=== PATIENT | male | born 1975 | race Hispanic/Latino ===

== ENCOUNTER 2017-01-24 14:48 | Inpatient (IN) | payer BC ==
[2017-01-24] MEDS ORDERED: Iohexol 240 (50 ml) PO ONE (15:31)
[2017-01-24] MEDS ORDERED: Iohexol 240 (50 ml) ONE (15:43)
--- NOTE | 2017-01-24 15:45 | ED PDOC ---
HPI: Abdomen Time Seen by Provider: 01/24/17 15:00 Chief Complaint (Nursing): Abdominal Pain Chief Complaint (Provider): Abdominal Pain History Per: Patient History/Exam Limitations: no limitations Onset/Duration Of Symptoms: Days (x 2) Current Symptoms Are (Timing): Still Present Location Of Pain/Discomfort: RLQ Associated Symptoms: Vomiting, Diarrhea, Constipation Additional Complaint(s): Wilberto is a 41 y/o male who was sent to ED from PMD for complaints of lower abdominal pain associated with vomiting and constipation, onset at 10PM last night. Patients last formed bowel movement was 3-4 days ago, and he states having diarrhea just now. Denies fever, hematuria, and urinary symptoms. PMD: [facility] provider Past Medical History Reviewed: Historical Data, Nursing Documentation, Vital Signs Vital Signs: Last Vital Signs Temp 99.9 F H 01/24/17 22:05 Pulse 110 H 01/24/17 22:05 Resp 20 01/24/17 22:05 BP 114/72 01/24/17 22:05 Pulse Ox 100 01/25/17 00:10 - Medical History PMH: No Chronic Diseases - Surgical History Surgical History: No Surg Hx - Family History Family History: States: Unknown Family Hx - Social History Current smoker - smoking cessation education provided: No Alcohol: None Drugs: Denies - Home Medications Home Medications: Ambulatory Orders Medication Instructions Recorded Naproxen 375 mg PO Q8 PRN #21 tab 04/21/15 - Allergies Allergies/Adverse Reactions: Allergies Allergy/AdvReac Type Severity Reaction Status Date / Time No Known Allergies Allergy Verified 01/24/17 14:55 Review of Systems ROS Statement: Except As Marked, All Systems Reviewed And Found Negative Constitutional: Negative for: Fever, Chills Gastrointestinal: Positive for: Vomiting, Abdominal Pain (right lower quadrant) , Diarrhea, Constipation Genitourinary Male: Negative for: Dysuria, Frequency, Incontinence, Hematuria Physical Exam - Reviewed Nursing Documentation Reviewed: Yes Vital Signs Reviewed: Yes - Physical Exam Appears: Positive for: Non-toxic, No Acute Distress Head Exam: Positive for: ATRAUMATIC, NORMAL INSPECTION, NORMOCEPHALIC Skin: Positive for: Normal Color, Warm, Dry Eye Exam: Positive for: EOMI, Normal appearance, PERRL Neck: Positive for: Normal, Painless ROM, Supple Cardiovascular/Chest: Positive for: Regular Rate, Rhythm. Negative for: Murmur Respiratory: Positive for: Normal Breath Sounds. Negative for: Accessory Muscle Use, Respiratory Distress Gastrointestinal/Abdominal: Positive for: Bowel Sounds, Soft, Tenderness (to the right lower quadrant). Negative for: Distended, Guarding, Rebound Back: Positive for: Normal Inspection. Negative for: Vertebral Tenderness Extremity: Positive for: Normal ROM. Negative for: Pedal Edema, Deformity Neurologic/Psych: Positive for: Alert, Oriented. Negative for: Motor/Sensory Deficits - Laboratory Results Result Diagrams: 01/24/17 16:00 01/24/17 16:00 - ECG O2 Sat by Pulse Oximetry: 100 (RA) Pulse Ox Interpretation: Normal Medical Decision Making Medical Decision Making: Time: 15:31 Initial Impression: RLQ Abdominal Pain rule out appendicitis Initial Plan: --CMP --CBC --Lipase --Urine culture --Urinalysis --Morphine 4 mg IV --Iohexol 50 ml IV --Zofran 4 mg IV --Pending CT Adomen/Pelvis --Admit to ED-Observation for abdominal pain 1531 ABD PELVIS PO and IV Contrast read by: inna Katz MD. Impression: Acute appendicitis. Disproportionate degree of inflammatory changes affecting ascending colon suggests perforation or a m ore acute inflammatory process. 1829 Spoke to Kaleb Anne, covering Dr Sebastian patients who states that for surgery they use DR. broderick Arenas. (Patient is a [facility] patient) 1844 Shirley the surgeon was made aware of patient and will take pt to OR shortly iv zosyn ordered pt aware of results, answered questions pt reexamined, not peritoneal. pt comfortable. Scribe Attestation: Documented by Sparkle Rodriguez, acting as a scribe for Stefani Valentin MD Provider Scribe Attestation: All medical record entries made by the Scribe were at my direction and personally dictated by me. I have reviewed the chart and agree that the record accurately reflects my personal performance of the history, physical exam, medical decision making, and the department course for this patient. I have also personally directed, reviewed, and agree with the discharge instructions and disposition. Disposition - Clinical Impression Clinical Impression: Appendicitis - Patient ED Disposition Is Patient to be Admitted: Yes - Disposition Disposition Time: 16:00 Condition: STABLE
[2017-01-24] MEDS ORDERED: Sodium Chloride 0.9% 1,000 ML IV STA (16:10)
[2017-01-24 16:20] LABS: HEMATOCRIT 42.6 % (35.0-51.0); LYMPH # 0.9 K/uL (1.0-4.3); LYMPH % 7.3 % (20.0-40.0); MEAN CELL VOLUME 83.4 fl (80.0-94.0); MEAN CORPUSCULAR HEMOGLOBIN 27.3 pg (27.0-31.0); MEAN CORPUSCULAR HGB CONC 32.7 g/dL (33.0-37.0); MEAN PLATELET VOLUME 8.3 fl (7.2-11.7); MONO # 0.7 K/uL (0.0-0.8); MONO % 5.6 % (0.0-10.0); NEUT # 10.2 K/uL (1.8-7.0); NEUT % 87.1 % (50.0-75.0); PLATELET COUNT 191 K/uL (130-400); RED CELL DISTRIBUTION WIDTH 13.3 % (11.5-14.5); WHITE BLOOD COUNT 11.7 K/uL (4.8-10.8)
[2017-01-24 16:32] LABS: ALB/GLOB RATIO 1.4 (1.0-2.1); ALKALINE PHOSPHATASE 54 U/L (38-126); ALT/SGPT 66 U/L (21-72); AST/SGOT 37 U/L (17-59); BLOOD UREA NITROGEN 13 mg/dl (9-20); CALCIUM 9.1 mg/dL (8.4-10.2); CARBON DIOXIDE 23 mmol/L (22-30); CHLORIDE 102 mmol/L (98-107); GFR AFRICAN-AMERICAN > 60; GLUCOSE,RANDOM 89 mg/dL (75-110); LIPASE 22 U/L (23-300); POTASSIUM 4.2 MMOL/L (3.6-5.0); SODIUM 137 mmol/l (132-148); TOTAL PROTEIN 7.4 G/DL (6.3-8.2)
[2017-01-24] MEDS ORDERED: Iohexol 300 100 ML IJ ONE (16:58)
[2017-01-24] MEDS ORDERED: Sodium Chloride 0.9% 50 ML IV ONE (16:58)
[2017-01-24 17:04] LABS: URINE BACTERIA RARE (<OCC); URINE BILIRUBIN NEGATIVE (NEGATIVE); URINE BLOOD NEGATIVE (NEGATIVE); URINE COLOR AMBER (YELLOW); URINE GLUCOSE (UA) NEG (Normal); URINE KETONE 80 mg/dL (NEGATIVE); URINE LEUKOCYTE ESTERASE TRACE Leu/uL (Negative); URINE PROTEIN NEGATIVE (NEGATIVE); URINE UROBILINOGEN 0.2-1.0 mg/dL (0.2-1.0)
[2017-01-24 17:06] LABS: RBC URINE 3 /hpf (0-3); WBC URINE 6 /hpf (0-5)
[2017-01-24 18:27] LABS: NEUTROPHIL 80 % (42-75); TOTAL CELLS COUNTED 100
--- NOTE | 2017-01-24 18:27 | CT ---
PROCEDURE: CT Abdomen and Pelvis with contrast HISTORY: abdominal pain right sided COMPARISON: None. TECHNIQUE: Contrast dose: 95 cc Omnipaque 300 Radiation dose: Total exam DLP = 881.91 mGy-cm. This CT exam was performed using one or more of the following dose reduction techniques: Automated exposure control, adjustment of the mA and/or kV according to patient size, and/or use of iterative reconstruction technique. FINDINGS: LOWER THORAX: Unremarkable. LIVER: Hepatic steatosis. No focal masses. No intrahepatic bile duct dilatation or perihepatic ascites. Focal fatty sparing of the liver right hepatic lobe adjacent to the falciform ligament. GALLBLADDER AND BILE DUCTS: Unremarkable. PANCREAS: Unremarkable. No gross lesion or ductal dilatation. SPLEEN: Unremarkable. ADRENALS: Unremarkable. No mass. KIDNEYS AND URETERS: Unremarkable. No hydronephrosis. No solid mass. VASCULATURE: Unremarkable. No aortic aneurysm. BOWEL: Inflammatory changes right lower quadrant primarily affecting cecum but dissecting more superiorly along the anti mesenteric wall of the right hemicolon. This appears to be related to acute appendicitis. There is focal fluid about the appendix tracking along the pericolic gutter. APPENDIX: Edematous appendix with contrast-enhanced characteristics indicative of acute appendicitis. Focal fluid adjacent to the appendix likely represents the sequela of ruptured appendix. PERITONEUM: Unremarkable. No free fluid. No free air. LYMPH NODES: Unremarkable. No enlarged lymph nodes. BLADDER: Unremarkable. REPRODUCTIVE: Unremarkable. BONES: No acute fracture. OTHER FINDINGS: None. IMPRESSION: Acute appendicitis. Disproportionate degree of inflammatory changes affecting the ascending colon suggests perforation or a more complicated acute inflammatory process.
[2017-01-24] MEDS ORDERED: Piperacillin/Tazobact 4.5 GM in Sodium Chloride 0.9% 100 ML IVPB STA (18:33)
[2017-01-24] MEDS ORDERED: Lidocaine 1% Inj (20ml) ONE (19:15)
[2017-01-24] MEDS ORDERED: Bupivacaine 0.5% Inj(30mL) ONE (19:15)
[2017-01-24 19:19] LABS: PARTIAL THROMBOPLASTIN TIME 30.3 Seconds (25.6-37.1)
[2017-01-24] MEDS ORDERED: Propofol 10 mg/ml Inj (20 ML) ONE (19:40)
[2017-01-24] MEDS ORDERED: Neostigmine Methylsulfate 2 MG/2 ML ML IV ONE (19:41)
[2017-01-24] MEDS ORDERED: Succinylcholine 200 mg/10 ml Inj IV ONE (19:41)
[2017-01-24] MEDS ORDERED: Lidocaine Hydrochloride 5 ML INJ ONE (19:41)
[2017-01-24] MEDS ORDERED: Midazolam 2 MG/2 ML VIAL ONE (19:41)
[2017-01-24] MEDS ORDERED: Lidocaine 4% (Laryng-O-Jet) Kit MM ONE (19:41)
[2017-01-24] MEDS ORDERED: Lactated Ringer's 1,000 ML IV ONE ×2 (19:48→21:33)
[2017-01-24] MEDS ORDERED: Rocuronium 10 mg/ml (5 ml) ONE (19:54)
--- NOTE | 2017-01-24 20:40 | PCM.SURG1 ---
Surgeon's Initial Post Op Note - Surgeon's Notes Surgeon: Yaquelin Cement Mixer Driver: none Type of Anesthesia: General Endo Anesthesia Administered By: Eleni Pre-Operative Diagnosis: acute appendicitis Operative Findings: perforated appendix Post-Operative Diagnosis: perforated ap with peritonitis Operation Performed: lap appendectomy Specimen/Specimens Removed: appendix Estimated Blood Loss: EBL {In ML}: 10 Blood Products Given: N/A Drains Used: Lennox Post-Op Condition: Good Date of Surgery/Procedure: 01/24/17 Time of Surgery/Procedure: 20:00
[2017-01-24] MEDS ORDERED: HYDROmorphone 0.5 mg/0.5 ml ISec IVP PRN (20:46)
[2017-01-24] MEDS ORDERED: Lactated Ringer's 1,000 ML IV SCH (20:46)
[2017-01-24] MEDS ORDERED: HYDROmorphone 0.5 mg/0.5 ml ISec IVP ONE (21:05)
[2017-01-24] MEDS ORDERED: Piperacillin/Tazobact 3.375 GM in Sodium Chloride 0.9% 100 ML IVPB SCH (22:00)
[2017-01-25] MEDS: Piperacillin/Tazobact 3.375 GM in Sodium Chloride 0.9% 100 ML IVPB SCH ×4 (00:45→18:26)
[2017-01-25] MEDS ORDERED: Sodium Chloride 0.9% 1,000 ML IV SCH (02:00)
[2017-01-25] MEDS: Dextrose 5%/0.45% NS 1,000 ML IV SCH ×3 (06:14→20:45)
--- NOTE | 2017-01-25 07:29 | CP.PCM.CON ---
History of Present Illness - History of Present Illness History of Present Illness: Surgery 41 M w no sig PMH came with RLQ abd pain. Pain was sudden onset started 2 days ago. Pt also reports nausea , vomiting and diarrhea. Denies F/sick contact/ hematuria/hematochezia/CP/SOB/hematemesis/recent travel. CT shows acute attendicitis. Surgery was consulted to evalute for acute appendicitis. Pt underwent laparoscopic appendectomy. Drain was placed. Today pain is contollred. c/o nausea from pain med. Tolerating CLD. + void, + amb. Denies fevers. Review of Systems - Review of Systems Review of Systems: See HPI Past Patient History - Past Social History Alcohol: None Drugs: Denies - PSYCHIATRIC Hx Substance Use: No - SURGICAL HISTORY Hx Surgeries: No - ANESTHESIA Hx Anesthesia: No Meds Allergies/Adverse Reactions: Allergies Allergy/AdvReac Type Severity Reaction Status Date / Time No Known Allergies Allergy Verified 01/24/17 14:55 - Medications Medications: Current Medications Acetaminophen (Tylenol 325mg Tab) 650 mg PO Q4 PRN PRN Reason: Fever >100.4 F Last Admin: 01/24/17 21:25 Dose: 650 mg Famotidine (Pepcid) 20 mg IVP Q12 [facility] Last Admin: 01/24/17 22:46 Dose: 20 mg Hydromorphone HCl (Dilaudid) 1 mg IVP Q4H PRN PRN Reason: Pain, severe (8-10) Last Admin: 01/25/17 06:18 Dose: 1 mg Dextrose/Sodium Chloride (Dextrose 5%/0.45% Ns 1000 Ml) 1,000 mls @ 125 mls/hr IV .Q8H [facility] Last Admin: 01/25/17 06:14 Dose: 125 mls/hr Lactated Ringer's (Lactated Ringer's) 1,000 mls @ 100 mls/hr IV .Q10H [facility] Piperacillin Sod/Tazobactam (Sod 3.375 gm/ Sodium Chloride) 100 mls @ 100 mls/ hr IVPB 0100,0700,1300,1900 [facility] Last Admin: 01/25/17 06:10 Dose: 100 mls/hr Morphine Sulfate (Morphine) 4 mg IVP Q4 PRN PRN Reason: abd pain Last Admin: 01/24/17 22:42 Dose: 4 mg Ondansetron HCl (Zofran Inj) 4 mg IVP Q6 PRN PRN Reason: Nausea/Vomiting Last Admin: 01/25/17 06:42 Dose: 4 mg Oxycodone/Acetaminophen (Percocet 5/325 Mg Tab) 1 tab PO Q4H PRN PRN Reason: Pain, moderate (4-7) Stop: 01/27/17 20:41 Pneumococcal Polyvalent Vaccine (Pneumovax 23 Vaccine) 0.5 ml IM .ONCE ONE Stop: 01/25/17 10:01 Physical Exam - Constitutional Appears: No Acute Distress - Head Exam Head Exam: ATRAUMATIC, NORMAL INSPECTION, NORMOCEPHALIC - Eye Exam Eye Exam: EOMI, Normal appearance, PERRL Pupil Exam: NORMAL ACCOMODATION, PERRL - ENT Exam ENT Exam: Mucous Membranes Moist, Normal Exam - Neck Exam Neck exam: Positive for: Normal Inspection - Respiratory Exam Respiratory Exam: Clear to Auscultation Bilateral, NORMAL BREATHING PATTERN - Cardiovascular Exam Cardiovascular Exam: REGULAR RHYTHM - GI/Abdominal Exam GI & Abdominal Exam: Normal Bowel Sounds, Soft, Tenderness. absent: Distended, Firm, Guarding, Hernia, Mass, Rigid Additional comments: RLQ TTP. Drain in place: 200cc SS. Dressings have dry stains. - Exam Exam: NORMAL INSPECTION - Extremities Exam Extremities exam: Positive for: full ROM, normal inspection. Negative for: tenderness - Back Exam Back exam: NORMAL INSPECTION - Neurological Exam Neurological exam: Alert, CN II-XII Intact, Normal Gait, Oriented x3, Reflexes Normal - Psychiatric Exam Psychiatric exam: Normal Affect, Normal Mood - Skin Skin Exam: Dry, Intact, Normal Color, Warm Results - Vital Signs Recent Vital Signs: Last Vital Signs Temp 98.3 F 01/25/17 05:00 Pulse 106 H 01/25/17 05:00 Resp 21 01/25/17 05:00 BP 107/68 01/25/17 05:00 Pulse Ox 96 01/25/17 05:00 - Labs Result Diagrams: 01/24/17 16:00 01/24/17 16:00 Labs: Laboratory Results - last 24 hr 01/24/17 19:00 PT 12.3 INR 1.2 APTT 30.3 Assessment & Plan - Assessment and Plan (Free Text) Assessment: POD 1 s/p laparoscopic appendectomy with drain Drain 200cc SS output -Monitor labs -ABX -IVF -Advance diet as tolerated -Encourage ambulation Will YESENIA attending
[2017-01-25 08:46] LABS: BASO % 0.2 % (0.0-2.0); HEMATOCRIT 31.3 % (35.0-51.0); LYMPH # 1.2 K/uL (1.0-4.3); MEAN CELL VOLUME 84.3 fl (80.0-94.0); MEAN CORPUSCULAR HEMOGLOBIN 27.5 pg (27.0-31.0); MEAN CORPUSCULAR HGB CONC 32.6 g/dL (33.0-37.0); MEAN PLATELET VOLUME 8.3 fl (7.2-11.7); MONO # 0.8 K/uL (0.0-0.8); MONO % 6.6 % (0.0-10.0); NEUT # 9.5 K/uL (1.8-7.0); NEUT % 83.2 % (50.0-75.0); RED CELL DISTRIBUTION WIDTH 13.5 % (11.5-14.5); WHITE BLOOD COUNT 11.5 K/uL (4.8-10.8)
[2017-01-25 09:04] LABS: ALKALINE PHOSPHATASE 41 U/L (38-126); ALT/SGPT 53 U/L (21-72); AST/SGOT 55 U/L (17-59); BILIRUBIN,TOTAL 2.1 mg/dl (0.2-1.3); BLOOD UREA NITROGEN 12 mg/dl (9-20); CALCIUM 7.7 mg/dL (8.4-10.2); CARBON DIOXIDE 21 mmol/L (22-30); CHLORIDE 105 mmol/L (98-107); GFR AFRICAN-AMERICAN > 60; GLUCOSE,RANDOM 118 mg/dL (75-110); SODIUM 135 mmol/l (132-148); TOTAL PROTEIN 5.7 G/DL (6.3-8.2)
[2017-01-25 09:11] LABS: ALB/GLOB RATIO 1.3 (1.0-2.1)
--- NOTE | 2017-01-25 09:36 | CP.PCM.HP ---
History of Present Illness - History of Present Illness History of Present Illness: pt admitted for appendicitis w/ perforation. at present comfortable is s/p lap ap w/ terra drain in place. bw noted. no f/c, n/v/d. samuel liquid diet. w/ abd distention/bloating. drain w/ sanguinous d/c Present on Admission - Present on Admission Any Indicators Present on Admission: No Review of Systems - Gastrointestinal Gastrointestinal: As Per HPI, Abdominal Pain Past Patient History - Past Social History Alcohol: None Drugs: Denies - PSYCHIATRIC Hx Substance Use: No - SURGICAL HISTORY Hx Surgeries: No - ANESTHESIA Hx Anesthesia: No Meds Allergies/Adverse Reactions: Allergies Allergy/AdvReac Type Severity Reaction Status Date / Time No Known Allergies Allergy Verified 01/24/17 14:55 Physical Exam - Constitutional Appears: Well, Non-toxic, No Acute Distress - Head Exam Head Exam: ATRAUMATIC, NORMAL INSPECTION, NORMOCEPHALIC - Eye Exam Eye Exam: EOMI, Normal appearance, PERRL Pupil Exam: NORMAL ACCOMODATION, PERRL - ENT Exam ENT Exam: Mucous Membranes Moist, Normal Exam - Neck Exam Neck exam: Positive for: Normal Inspection - Respiratory Exam Respiratory Exam: Clear to Auscultation Bilateral, NORMAL BREATHING PATTERN - Cardiovascular Exam Cardiovascular Exam: REGULAR RHYTHM, RRR, +S1, +S2 - GI/Abdominal Exam GI & Abdominal Exam: Distended, Normal Bowel Sounds, Soft, Tenderness Additional comments: drain noted - Extremities Exam Extremities exam: Positive for: full ROM, normal capillary refill, normal inspection, pedal pulses present - Back Exam Back exam: NORMAL INSPECTION - Neurological Exam Neurological exam: Alert, CN II-XII Intact, Normal Gait, Oriented x3, Reflexes Normal - Psychiatric Exam Psychiatric exam: Normal Affect, Normal Mood - Skin Skin Exam: Dry, Intact, Normal Color, Warm Results - Vital Signs Recent Vital Signs: Last Vital Signs Temp 98.2 F 01/25/17 08:15 Pulse 96 H 01/25/17 08:15 Resp 20 01/25/17 08:15 BP 108/69 01/25/17 08:15 Pulse Ox 95 01/25/17 08:15 - Labs Result Diagrams: 01/25/17 07:45 01/25/17 07:45 Labs: Laboratory Results - last 24 hr 01/24/17 01/25/17 01/25/17 19:00 07:45 07:45 WBC 11.5 H RBC 3.72 L Hgb 10.2 L D Hct 31.3 L MCV 84.3 MCH 27.5 MCHC 32.6 L RDW 13.5 Plt Count 174 MPV 8.3 Neut % (Auto) 83.2 H Lymph % (Auto) 10.0 L Gilmer % (Auto) 6.6 Eos % (Auto) 0.0 Baso % (Auto) 0.2 Neut # 9.5 H Lymph # 1.2 Gilmer # 0.8 Eos # 0.0 Baso # 0.0 PT 12.3 INR 1.2 APTT 30.3 Sodium 135 Potassium 4.0 Chloride 105 Carbon Dioxide 21 L Anion Gap 13 BUN 12 Creatinine 1.1 Est GFR ( Amer) > 60 Est GFR (Non-Af Amer) > 60 Random Glucose 118 H Calcium 7.7 L Total Bilirubin 2.1 H AST 55 ALT 53 Alkaline Phosphatase 41 Total Protein 5.7 L Albumin 3.2 L D Globulin 2.5 Albumin/Globulin Ratio 1.3 Assessment & Plan (1) DVT prophylaxis Assessment and Plan: scd and aehose ambulation Status: Acute (2) Appendicitis Assessment and Plan: pain control surgery po as samuel surgery, monitor drain zosyn ivf oob, insentive spirometer Status: Acute Decision To Admit - Pt Status Changed To: Hospital Disposition Of: Inpatient - Admit Certification Admit to Inpatient:: After my assessment, the patient will require hospitalization for at least two midnights. This is because of the severity of symptoms shown, intensity of services needed, and/or the medical risk in this patient being treated as an outpatient. - . Bed Request Type: Med/Surg Admitting Physician: Leti Alvarado
[2017-01-25] MEDS ORDERED: Pneumococcal 23-Valent Vaccine IM ONE (10:00)
[2017-01-25] MEDS: Oxycodone/Acetaminophen 5/325 mg Tab PO PRN ×2 (10:16→17:33)
--- NOTE | 2017-01-25 10:50 | OP ---
DATE: 01/24/2017 PREOPERATIVE DIAGNOSIS: Acute appendicitis. POSTOPERATIVE DIAGNOSIS: Ruptured appendix with localized abscess. PROCEDURE: Laparoscopic appendectomy and drainage of the right gutter. SURGEON: Dickson Arenas MD HAND SPLITTER: None. TYPE OF ANESTHESIA: General. ANESTHESIA ADMINISTERED BY: Tayo Knowles MD OPERATIVE FINDING: Perforated appendix. DESCRIPTION OF PROCEDURE: After obtaining informed consent, the patient was taken to the operating room. After a time-out was obtained, an induction of general endotracheal anesthesia was obtained. The abdomen was prepped and draped in the usual manner. A Veress needle was inserted in the periumbilical region, making sure that it was in the intra-abdominal cavity and adequate pneumoperitoneum was obtained. A 5-mm bladeless trocar was inserted in the periumbilical region under Visiport and under direct visualization, a 5 mm in the suprapubic region and a 12 mm in the left lower quadrant. There was a significant amount of inflammatory reaction in the right lower quadrant. The terminal ilium was retrocecal. This was followed and the cecum was visualized. The teniae was followed and it showed that the appendix was in a lateral aspect anteriorly as well, perforated and embedded in the cecal wall. The base of the appendix was visualized, this was carefully dissected. A window was made and using an Endo EDDA with an intestinal load, the base was divided. Careful dissection at the mesoappendix was done, but this is where the appendix was perforated. So upon stapling the mesoappendix, this fell apart, but we were able to place an Endo EDDA vascular load to divide the mesoappendix. Again, the appendix was perforated and was divided in 2 upon the retraction. At this point, both the proximal and distal aspects of the appendix were placed in an Endo bag. The area was copiously irrigated and suctioned. Because of the severe inflammation and infection, I elected to place a Lennox drain in the right lower quadrant by the area of the appendix. The area was inspected for meticulous hemostasis. The Lennox was brought out through the suprapubic incision. At this point, all trocars were removed after the appendix had been removed. Pneumoperitoneum was aspirated. The skin was closed with 5-0 Monocryl. The drain was attached to the skin using 2-0 silk. The patient tolerated the procedure very well and was transferred to recovery room in stable condition. Dickson Arenas MD
--- NOTE | 2017-01-25 14:00 | CP.PCM.PN ---
Subjective - Date & Time of Evaluation Date of Evaluation: 01/25/17 Time of Evaluation: 13:59 - Subjective Subjective: complains of pain, bloating, no nausea or vomiting Objective - Vital Signs/Intake and Output Vital Signs (last 24 hours): Temp Pulse Resp BP Pulse Ox 98.8 F 94 H 18 117/65 96 01/25/17 12:48 01/25/17 12:48 01/25/17 12:48 01/25/17 12:48 01/25/17 12:48 Intake and Output: 01/25/17 01/25/17 06:59 18:59 Intake Total 850 Output Total 10 Balance 840 - Medications Medications: Current Medications Acetaminophen (Tylenol 325mg Tab) 650 mg PO Q4 PRN PRN Reason: Fever >100.4 F Last Admin: 01/24/17 21:25 Dose: 650 mg Famotidine (Pepcid) 20 mg IVP Q12 [facility] Last Admin: 01/25/17 09:03 Dose: 20 mg Hydromorphone HCl (Dilaudid) 1 mg IVP Q4H PRN PRN Reason: Pain, severe (8-10) Last Admin: 01/25/17 06:18 Dose: 1 mg Dextrose/Sodium Chloride (Dextrose 5%/0.45% Ns 1000 Ml) 1,000 mls @ 125 mls/hr IV .Q8H [facility] Last Admin: 01/25/17 06:14 Dose: 125 mls/hr Lactated Ringer's (Lactated Ringer's) 1,000 mls @ 100 mls/hr IV .Q10H [facility] Piperacillin Sod/Tazobactam (Sod 3.375 gm/ Sodium Chloride) 100 mls @ 100 mls/ hr IVPB 0100,0700,1300,1900 [facility] Last Admin: 01/25/17 12:39 Dose: 100 mls/hr Morphine Sulfate (Morphine) 4 mg IVP Q4 PRN PRN Reason: abd pain Last Admin: 01/24/17 22:42 Dose: 4 mg Ondansetron HCl (Zofran Inj) 4 mg IVP Q6 PRN PRN Reason: Nausea/Vomiting Last Admin: 01/25/17 06:42 Dose: 4 mg Oxycodone/Acetaminophen (Percocet 5/325 Mg Tab) 1 tab PO Q4H PRN PRN Reason: Pain, moderate (4-7) Stop: 01/27/17 20:41 Last Admin: 01/25/17 10:16 Dose: 1 tab - Labs Labs: 01/25/17 07:45 01/25/17 07:45 PT 12.3 Seconds (9.8-13.1) 01/24/17 19:00 INR 1.2 (0.9-1.2) 01/24/17 19:00 APTT 30.3 Seconds (25.6-37.1) 01/24/17 19:00 - Constitutional Appears: Non-toxic - Head Exam Head Exam: ATRAUMATIC - Eye Exam Eye Exam: Normal appearance - ENT Exam ENT Exam: Mucous Membranes Dry - Neck Exam Neck Exam: Full ROM - Respiratory Exam Respiratory Exam: Clear to Ausculation Bilateral, NORMAL BREATHING PATTERN - Cardiovascular Exam Cardiovascular Exam: REGULAR RHYTHM - GI/Abdominal Exam GI & Abdominal Exam: Distended, Soft, Normal Bowel Sounds Assessment and Plan - Assessment and Plan (Free Text) Assessment: POD #1, cont abx, incentive spirometer oob to ambulate
[2017-01-25 16:55] LABS: HEMATOCRIT 28.3 % (35.0-51.0); MEAN CELL VOLUME 83.4 fl (80.0-94.0); MEAN CORPUSCULAR HEMOGLOBIN 27.5 pg (27.0-31.0); RED CELL DISTRIBUTION WIDTH 13.3 % (11.5-14.5); WHITE BLOOD COUNT 9.1 K/uL (4.8-10.8)
[2017-01-25] MEDS ORDERED: Lactated Ringer's 1,000 ML IV SCH (19:00)
[2017-01-25 21:57] LABS: HEMATOCRIT 26.3 % (35.0-51.0); MEAN CELL VOLUME 82.9 fl (80.0-94.0); MEAN CORPUSCULAR HEMOGLOBIN 27.6 pg (27.0-31.0); MEAN CORPUSCULAR HGB CONC 33.3 g/dL (33.0-37.0); RED CELL DISTRIBUTION WIDTH 13.2 % (11.5-14.5); WHITE BLOOD COUNT 9.1 K/uL (4.8-10.8)
[2017-01-25] MEDS: Lactated Ringer's 1,000 ML IV SCH (22:30)
[2017-01-25] MEDS ORDERED: DiphenhydrAMINE 50 mg/ml Inj IVP ONE (23:06)
[2017-01-26] MEDS: Piperacillin/Tazobact 3.375 GM in Sodium Chloride 0.9% 100 ML IVPB SCH ×4 (00:57→18:09)
[2017-01-26 01:04] LABS: HEMATOCRIT 25.8 % (35.0-51.0); MEAN CORPUSCULAR HGB CONC 33.7 g/dL (33.0-37.0); RED CELL DISTRIBUTION WIDTH 13.3 % (11.5-14.5); WHITE BLOOD COUNT 8.3 K/uL (4.8-10.8)
[2017-01-26] MEDS: Lactated Ringer's 1,000 ML IV SCH ×3 (04:26→20:09)
[2017-01-26] MEDS: Dextrose 5%/0.45% NS 1,000 ML IV SCH ×2 (05:04→15:48)
[2017-01-26 08:36] LABS: MEAN CELL VOLUME 83.4 fl (80.0-94.0); MEAN CORPUSCULAR HEMOGLOBIN 27.7 pg (27.0-31.0); MEAN CORPUSCULAR HGB CONC 33.2 g/dL (33.0-37.0); RED CELL DISTRIBUTION WIDTH 13.2 % (11.5-14.5); WHITE BLOOD COUNT 8.6 K/uL (4.8-10.8)
--- NOTE | 2017-01-26 08:45 | CP.PCM.PN ---
Subjective - Date & Time of Evaluation Date of Evaluation: 01/26/17 Time of Evaluation: 08:43 - Subjective Subjective: pt still w/ abd distention and having discharge from terra drain. this is slowing down no f/c, n/v/d bw noted, hgb slowly decr. iron panel is pending. liquid diet is ordered and will be advanced as per surgery Objective - Vital Signs/Intake and Output Vital Signs (last 24 hours): Temp Pulse Resp BP Pulse Ox 98.7 F 114 H 20 122/63 96 01/26/17 07:41 01/26/17 07:41 01/26/17 07:41 01/26/17 07:41 01/26/17 07:41 Intake and Output: 01/26/17 01/26/17 06:59 18:59 Intake Total 3000 Output Total 2980 Balance 20 - Medications Medications: Current Medications Acetaminophen (Tylenol 325mg Tab) 650 mg PO Q4 PRN PRN Reason: Fever >100.4 F Last Admin: 01/24/17 21:25 Dose: 650 mg Famotidine (Pepcid) 20 mg IVP Q12 [facility] Last Admin: 01/26/17 08:35 Dose: 20 mg Hydromorphone HCl (Dilaudid) 1 mg IVP Q4H PRN PRN Reason: Pain, severe (8-10) Last Admin: 01/26/17 00:43 Dose: 1 mg Dextrose/Sodium Chloride (Dextrose 5%/0.45% Ns 1000 Ml) 1,000 mls @ 125 mls/hr IV .Q8H [facility] Last Admin: 01/26/17 05:04 Dose: Not Given Piperacillin Sod/Tazobactam (Sod 3.375 gm/ Sodium Chloride) 100 mls @ 100 mls/ hr IVPB 0100,0700,1300,1900 [facility] Last Admin: 01/26/17 07:01 Dose: 100 mls/hr Lactated Ringer's (Lactated Ringer's) 1,000 mls @ 999 mls/hr IV .Q1H1M [facility] Last Admin: 01/25/17 19:16 Dose: 999 mls/hr Lactated Ringer's (Lactated Ringer's) 1,000 mls @ 150 mls/hr IV .Q6H40M [facility] Last Admin: 01/26/17 04:26 Dose: 150 mls/hr Morphine Sulfate (Morphine) 4 mg IVP Q4 PRN PRN Reason: abd pain Last Admin: 01/24/17 22:42 Dose: 4 mg Ondansetron HCl (Zofran Inj) 4 mg IVP Q6 PRN PRN Reason: Nausea/Vomiting Last Admin: 01/26/17 08:36 Dose: 4 mg Oxycodone/Acetaminophen (Percocet 5/325 Mg Tab) 1 tab PO Q4H PRN PRN Reason: Pain, moderate (4-7) Stop: 01/27/17 20:41 Last Admin: 01/25/17 17:33 Dose: 1 tab - Labs Labs: 01/26/17 00:50 01/25/17 07:45 PT 12.3 Seconds (9.8-13.1) 01/24/17 19:00 INR 1.2 (0.9-1.2) 01/24/17 19:00 APTT 30.3 Seconds (25.6-37.1) 01/24/17 19:00 - Constitutional Appears: Well, Non-toxic, No Acute Distress - Head Exam Head Exam: ATRAUMATIC, NORMAL INSPECTION, NORMOCEPHALIC - Eye Exam Eye Exam: EOMI, Normal appearance, PERRL Pupil Exam: NORMAL ACCOMODATION, PERRL - ENT Exam ENT Exam: Mucous Membranes Moist, Normal Exam - Neck Exam Neck Exam: Full ROM, Normal Inspection. absent: Lymphadenopathy - Respiratory Exam Respiratory Exam: Clear to Ausculation Bilateral, NORMAL BREATHING PATTERN - Cardiovascular Exam Cardiovascular Exam: REGULAR RHYTHM, RRR, +S1, +S2. absent: Murmur - GI/Abdominal Exam GI & Abdominal Exam: Distended, Soft, Normal Bowel Sounds. absent: Tenderness - Extremities Exam Extremities Exam: Full ROM, Normal Capillary Refill, Normal Inspection. absent : Joint Swelling, Pedal Edema - Back Exam Back Exam: NORMAL INSPECTION - Neurological Exam Neurological Exam: Alert, Awake, CN II-XII Intact, Normal Gait, Oriented x3 - Psychiatric Exam Psychiatric exam: Normal Affect, Normal Mood - Skin Skin Exam: Dry, Intact, Normal Color, Warm Assessment and Plan (1) DVT prophylaxis Status: Acute (2) Appendicitis Status: Acute - Assessment and Plan (Free Text) Assessment: (1) DVT prophylaxis Assessment and Plan: scd and aehose ambulation Status: Acute (2) Appendicitis Assessment and Plan: pain control surgery po as samuel surgery, monitor drain zosyn ivf oob, insentive spirometer full liquids nad adv to bland Status: Acute
[2017-01-26] MEDS: Oxycodone/Acetaminophen 5/325 mg Tab PO PRN (18:13)
[2017-01-26] MEDS ORDERED: Alum-Mag Hydrox-Simethicone Susp (30 mL) PO ONE (19:35)
--- NOTE | 2017-01-26 19:51 | CP.PCM.PN ---
Subjective - Date & Time of Evaluation Date of Evaluation: 01/26/17 Time of Evaluation: 19:47 - Subjective Subjective: Surgery Pt s&e. C/O abd discomfort. Denies flatus. Tolerating diet. + void. Drain in place. Denies F/C/N/V/D/CP/SOB. Objective - Vital Signs/Intake and Output Vital Signs (last 24 hours): Temp Pulse Resp BP Pulse Ox 99 F 113 H 18 124/82 96 01/26/17 16:22 01/26/17 16:22 01/26/17 16:22 01/26/17 16:22 01/26/17 16:22 Intake and Output: 01/26/17 01/27/17 18:59 06:59 Intake Total 1700 Output Total 570 Balance 1130 - Medications Medications: Current Medications Acetaminophen (Tylenol 325mg Tab) 650 mg PO Q4 PRN PRN Reason: Fever >100.4 F Last Admin: 01/24/17 21:25 Dose: 650 mg Docusate Sodium (Colace) 100 mg PO DAILY [facility] Famotidine (Pepcid) 20 mg IVP Q12 [facility] Last Admin: 01/26/17 08:35 Dose: 20 mg Hydromorphone HCl (Dilaudid) 1 mg IVP Q4H PRN PRN Reason: Pain, severe (8-10) Last Admin: 01/26/17 15:51 Dose: 1 mg Dextrose/Sodium Chloride (Dextrose 5%/0.45% Ns 1000 Ml) 1,000 mls @ 125 mls/hr IV .Q8H [facility] Last Admin: 01/26/17 15:48 Dose: Not Given Piperacillin Sod/Tazobactam (Sod 3.375 gm/ Sodium Chloride) 100 mls @ 100 mls/ hr IVPB 0100,0700,1300,1900 [facility] Last Admin: 01/26/17 18:09 Dose: 100 mls/hr Lactated Ringer's (Lactated Ringer's) 1,000 mls @ 999 mls/hr IV .Q1H1M [facility] Last Admin: 01/25/17 19:16 Dose: 999 mls/hr Lactated Ringer's (Lactated Ringer's) 1,000 mls @ 150 mls/hr IV .Q6H40M [facility] Last Admin: 01/26/17 12:24 Dose: 150 mls/hr Morphine Sulfate (Morphine) 4 mg IVP Q4 PRN PRN Reason: abd pain Last Admin: 01/24/17 22:42 Dose: 4 mg Ondansetron HCl (Zofran Inj) 4 mg IVP Q6 PRN PRN Reason: Nausea/Vomiting Last Admin: 01/26/17 08:36 Dose: 4 mg Oxycodone/Acetaminophen (Percocet 5/325 Mg Tab) 1 tab PO Q4H PRN PRN Reason: Pain, moderate (4-7) Stop: 01/27/17 20:41 Last Admin: 01/26/17 18:13 Dose: 1 tab Simethicone (Mylicon Chew Tab) 80 mg PO TID PRN PRN Reason: Flatulence - Labs Labs: 01/26/17 06:30 01/25/17 07:45 PT 12.3 Seconds (9.8-13.1) 01/24/17 19:00 INR 1.2 (0.9-1.2) 01/24/17 19:00 APTT 30.3 Seconds (25.6-37.1) 01/24/17 19:00 - Constitutional Appears: Non-toxic - Head Exam Head Exam: ATRAUMATIC, NORMAL INSPECTION, NORMOCEPHALIC - Eye Exam Eye Exam: EOMI, Normal appearance, PERRL Pupil Exam: NORMAL ACCOMODATION, PERRL - ENT Exam ENT Exam: Mucous Membranes Moist, Normal Exam - Neck Exam Neck Exam: Full ROM, Normal Inspection. absent: Lymphadenopathy - Respiratory Exam Respiratory Exam: Clear to Ausculation Bilateral, NORMAL BREATHING PATTERN - Cardiovascular Exam Cardiovascular Exam: REGULAR RHYTHM, +S1, +S2. absent: Murmur - GI/Abdominal Exam GI & Abdominal Exam: Distended, Firm, Tenderness, Normal Bowel Sounds. absent: Rigid, Rebound - Exam Exam: NORMAL INSPECTION - Extremities Exam Extremities Exam: Full ROM, Normal Capillary Refill, Normal Inspection. absent : Joint Swelling, Pedal Edema - Back Exam Back Exam: NORMAL INSPECTION - Neurological Exam Neurological Exam: Alert, Awake, CN II-XII Intact, Normal Gait, Oriented x3 - Psychiatric Exam Psychiatric exam: Normal Affect, Normal Mood - Skin Skin Exam: Dry, Intact, Normal Color, Warm Assessment and Plan - Assessment and Plan (Free Text) Assessment: POD 2 s/p lap norberto OMAYRA 500cc ss /24hr Hgb 9 -monitor labs -MOnitor drain output -VS -IVF -ABX -Pain control YESENIA attending
[2017-01-26] MEDS: Simethicone 80 mg Chewtab PO PRN (23:22)
[2017-01-27] MEDS: Piperacillin/Tazobact 3.375 GM in Sodium Chloride 0.9% 100 ML IVPB SCH ×4 (00:03→18:19)
[2017-01-27] MEDS: Lactated Ringer's 1,000 ML IV SCH ×2 (01:00→21:34)
[2017-01-27] MEDS: Oxycodone/Acetaminophen 5/325 mg Tab PO PRN ×3 (04:20→15:46)
[2017-01-27 08:04] LABS: HEMATOCRIT 28.4 % (35.0-51.0); MEAN CELL VOLUME 82.3 fl (80.0-94.0); MEAN CORPUSCULAR HEMOGLOBIN 28.3 pg (27.0-31.0); MEAN CORPUSCULAR HGB CONC 34.4 g/dL (33.0-37.0); RED CELL DISTRIBUTION WIDTH 12.9 % (11.5-14.5); WHITE BLOOD COUNT 9.4 K/uL (4.8-10.8)
[2017-01-27] MEDS ORDERED: Oxycodone/Acetaminophen 5/325 mg Tab PO PRN (08:41)
[2017-01-27 08:43] LABS: IRON < 10 ug/dL (49-181)
[2017-01-27] MEDS: Simethicone 80 mg Chewtab PO PRN ×2 (09:07→16:00)
[2017-01-27] MEDS ORDERED: Simethicone 80 mg Chewtab PO STA (09:21)
--- NOTE | 2017-01-27 09:25 | CP.PCM.PN ---
Subjective - Date & Time of Evaluation Date of Evaluation: 01/27/17 Time of Evaluation: 09:23 - Subjective Subjective: Surgery Pt s&e. Reports passing gas. vomited this AM. Non bloody, non bilious. + void. + amb. Pain controlled. Objective - Vital Signs/Intake and Output Vital Signs (last 24 hours): Temp Pulse Resp BP Pulse Ox 98.4 F 114 H 20 139/92 H 95 01/27/17 07:25 01/27/17 09:00 01/27/17 07:25 01/27/17 07:25 01/27/17 07:25 Intake and Output: 01/27/17 01/27/17 06:59 18:59 Intake Total 2700 Output Total 0 440 Balance 0 2260 - Medications Medications: Current Medications Acetaminophen (Tylenol 325mg Tab) 650 mg PO Q4 PRN PRN Reason: Fever >100.4 F Last Admin: 01/24/17 21:25 Dose: 650 mg Docusate Sodium (Colace) 100 mg PO DAILY [facility] Last Admin: 01/27/17 09:03 Dose: 100 mg Famotidine (Pepcid) 20 mg IVP Q12 [facility] Last Admin: 01/27/17 09:03 Dose: 20 mg Hydromorphone HCl (Dilaudid) 1 mg IVP Q4H PRN PRN Reason: Pain, severe (8-10) Last Admin: 01/26/17 23:15 Dose: 1 mg Piperacillin Sod/Tazobactam (Sod 3.375 gm/ Sodium Chloride) 100 mls @ 100 mls/ hr IVPB 0100,0700,1300,1900 [facility] Last Admin: 01/27/17 06:07 Dose: 100 mls/hr Lactated Ringer's (Lactated Ringer's) 1,000 mls @ 150 mls/hr IV .Q6H40M [facility] Last Admin: 01/27/17 01:00 Dose: Not Given Morphine Sulfate (Morphine) 4 mg IVP Q4 PRN PRN Reason: abd pain Last Admin: 01/24/17 22:42 Dose: 4 mg Ondansetron HCl (Zofran Inj) 4 mg IVP Q6 PRN PRN Reason: Nausea/Vomiting Last Admin: 01/26/17 23:20 Dose: 4 mg Oxycodone/Acetaminophen (Percocet 5/325 Mg Tab) 1 tab PO Q4H PRN PRN Reason: Pain, moderate (4-7) Stop: 01/27/17 20:41 Last Admin: 01/27/17 09:07 Dose: 1 tab Oxycodone/Acetaminophen (Percocet 5/325 Mg Tab) 2 tab PO Q4 PRN PRN Reason: Pain, severe (8-10) Stop: 01/30/17 08:42 Simethicone (Mylicon Chew Tab) 80 mg PO TID PRN PRN Reason: Flatulence Last Admin: 01/27/17 09:07 Dose: 80 mg Simethicone (Mylicon Chew Tab) 80 mg PO STAT [facility] Stop: 01/27/17 09:22 - Labs Labs: 01/27/17 06:00 01/25/17 07:45 PT 12.3 Seconds (9.8-13.1) 01/24/17 19:00 INR 1.2 (0.9-1.2) 01/24/17 19:00 APTT 30.3 Seconds (25.6-37.1) 01/24/17 19:00 - Constitutional Appears: No Acute Distress - Head Exam Head Exam: ATRAUMATIC, NORMAL INSPECTION, NORMOCEPHALIC - Eye Exam Eye Exam: EOMI, Normal appearance, PERRL Pupil Exam: NORMAL ACCOMODATION, PERRL - ENT Exam ENT Exam: Mucous Membranes Moist, Normal Exam - Neck Exam Neck Exam: Full ROM, Normal Inspection. absent: Lymphadenopathy - Respiratory Exam Respiratory Exam: Clear to Ausculation Bilateral, NORMAL BREATHING PATTERN - Cardiovascular Exam Cardiovascular Exam: REGULAR RHYTHM, +S1, +S2. absent: Murmur - GI/Abdominal Exam GI & Abdominal Exam: Distended, Soft, Normal Bowel Sounds. absent: Tenderness Additional comments: Incision intact. OMAYRA in place. 1L /24hrs ss - Extremities Exam Extremities Exam: Full ROM, Normal Capillary Refill, Normal Inspection. absent : Joint Swelling, Pedal Edema - Back Exam Back Exam: NORMAL INSPECTION - Neurological Exam Neurological Exam: Alert, Awake, CN II-XII Intact, Normal Gait, Oriented x3 - Psychiatric Exam Psychiatric exam: Normal Affect, Normal Mood - Skin Skin Exam: Dry, Intact, Normal Color, Warm Assessment and Plan - Assessment and Plan (Free Text) Assessment: POD 3 s/p lap norberto OMAYRA 1000cc ss /24hr Hgb 9.8 -monitor labs -MOnitor drain output -VS -IVF -ABX -Pain control -Nausea control Will YESENIA attending
--- NOTE | 2017-01-27 09:37 | CP.PCM.PN ---
Subjective - Date & Time of Evaluation Date of Evaluation: 01/27/17 Time of Evaluation: 09:37 - Subjective Subjective: pt comfortable in bed, no distress no f/c, n/v/d still w/ abd bloating passed some flatus/stool w/ stool softner, still bloated/distended. am labs noted. hgb coming back up. Objective - Vital Signs/Intake and Output Vital Signs (last 24 hours): Temp Pulse Resp BP Pulse Ox 98.4 F 114 H 20 139/92 H 95 01/27/17 07:25 01/27/17 09:00 01/27/17 07:25 01/27/17 07:25 01/27/17 07:25 Intake and Output: 01/27/17 01/27/17 06:59 18:59 Intake Total 2700 Output Total 0 440 Balance 0 2260 - Medications Medications: Current Medications Acetaminophen (Tylenol 325mg Tab) 650 mg PO Q4 PRN PRN Reason: Fever >100.4 F Last Admin: 01/24/17 21:25 Dose: 650 mg Docusate Sodium (Colace) 100 mg PO DAILY [facility] Last Admin: 01/27/17 09:03 Dose: 100 mg Famotidine (Pepcid) 20 mg IVP Q12 [facility] Last Admin: 01/27/17 09:03 Dose: 20 mg Hydromorphone HCl (Dilaudid) 1 mg IVP Q4H PRN PRN Reason: Pain, severe (8-10) Last Admin: 01/26/17 23:15 Dose: 1 mg Piperacillin Sod/Tazobactam (Sod 3.375 gm/ Sodium Chloride) 100 mls @ 100 mls/ hr IVPB 0100,0700,1300,1900 [facility] Last Admin: 01/27/17 06:07 Dose: 100 mls/hr Lactated Ringer's (Lactated Ringer's) 1,000 mls @ 150 mls/hr IV .Q6H40M [facility] Last Admin: 01/27/17 01:00 Dose: Not Given Morphine Sulfate (Morphine) 4 mg IVP Q4 PRN PRN Reason: abd pain Last Admin: 01/24/17 22:42 Dose: 4 mg Ondansetron HCl (Zofran Inj) 4 mg IVP Q6 PRN PRN Reason: Nausea/Vomiting Last Admin: 01/26/17 23:20 Dose: 4 mg Oxycodone/Acetaminophen (Percocet 5/325 Mg Tab) 1 tab PO Q4H PRN PRN Reason: Pain, moderate (4-7) Stop: 01/27/17 20:41 Last Admin: 01/27/17 09:07 Dose: 1 tab Oxycodone/Acetaminophen (Percocet 5/325 Mg Tab) 2 tab PO Q4 PRN PRN Reason: Pain, severe (8-10) Stop: 01/30/17 08:42 Simethicone (Mylicon Chew Tab) 80 mg PO TID PRN PRN Reason: Flatulence Last Admin: 01/27/17 09:07 Dose: 80 mg Simethicone (Mylicon Chew Tab) 80 mg PO STAT [facility] Stop: 01/27/17 09:22 - Labs Labs: 01/27/17 06:00 01/25/17 07:45 PT 12.3 Seconds (9.8-13.1) 01/24/17 19:00 INR 1.2 (0.9-1.2) 01/24/17 19:00 APTT 30.3 Seconds (25.6-37.1) 01/24/17 19:00 - Constitutional Appears: Well, Non-toxic, No Acute Distress - Head Exam Head Exam: ATRAUMATIC, NORMAL INSPECTION, NORMOCEPHALIC - Eye Exam Eye Exam: EOMI, Normal appearance, PERRL Pupil Exam: NORMAL ACCOMODATION, PERRL - ENT Exam ENT Exam: Mucous Membranes Moist, Normal Exam - Neck Exam Neck Exam: Full ROM, Normal Inspection. absent: Lymphadenopathy - Respiratory Exam Respiratory Exam: Clear to Ausculation Bilateral, NORMAL BREATHING PATTERN - Cardiovascular Exam Cardiovascular Exam: REGULAR RHYTHM, RRR, +S1, +S2. absent: Murmur - GI/Abdominal Exam GI & Abdominal Exam: Distended, Soft, Normal Bowel Sounds - Extremities Exam Extremities Exam: Full ROM, Normal Capillary Refill, Normal Inspection. absent : Joint Swelling, Pedal Edema - Back Exam Back Exam: NORMAL INSPECTION - Neurological Exam Neurological Exam: Alert, Awake, CN II-XII Intact, Normal Gait, Oriented x3 - Psychiatric Exam Psychiatric exam: Normal Affect, Normal Mood - Skin Skin Exam: Dry, Intact, Normal Color, Warm Assessment and Plan (1) DVT prophylaxis Assessment & Plan: scd and ae hose ambulation hold anticoag for now Status: Acute (2) Appendicitis Assessment & Plan: cont anbx, terra drain pain control sugery f/u liquid diet and adv when samuel and less distendned Status: Acute - Assessment and Plan (Free Text) Assessment: acute blood loss anemia-stabilzing and rising, concern w/ po iron as could cause further constipation. will monitor and further assess need. heme consult prn
[2017-01-28] MEDS: Piperacillin/Tazobact 3.375 GM in Sodium Chloride 0.9% 100 ML IVPB SCH ×4 (00:01→18:30)
[2017-01-28] MEDS: Lactated Ringer's 1,000 ML IV SCH ×4 (00:02→17:26)
[2017-01-28 07:27] LABS: HEMATOCRIT 26.3 % (35.0-51.0); MEAN CELL VOLUME 82.5 fl (80.0-94.0); MEAN CORPUSCULAR HEMOGLOBIN 27.4 pg (27.0-31.0); MEAN CORPUSCULAR HGB CONC 33.3 g/dL (33.0-37.0); RED CELL DISTRIBUTION WIDTH 12.9 % (11.5-14.5)
[2017-01-28 07:50] LABS: ALB/GLOB RATIO 1.1 (1.0-2.1); ALKALINE PHOSPHATASE 41 U/L (38-126); ALT/SGPT 58 U/L (21-72); AST/SGOT 47 U/L (17-59); BILIRUBIN,TOTAL 0.8 mg/dl (0.2-1.3); BLOOD UREA NITROGEN 9 mg/dl (9-20); CALCIUM 7.8 mg/dL (8.4-10.2); CARBON DIOXIDE 28 mmol/L (22-30); CHLORIDE 98 mmol/L (98-107); GFR AFRICAN-AMERICAN > 60; GLUCOSE,RANDOM 106 mg/dL (75-110); POTASSIUM 4.1 MMOL/L (3.6-5.0); SODIUM 133 mmol/l (132-148); TOTAL PROTEIN 5.3 G/DL (6.3-8.2)
--- NOTE | 2017-01-28 08:05 | CP.PCM.PN ---
Subjective - Date & Time of Evaluation Date of Evaluation: 01/28/17 Time of Evaluation: 08:04 - Subjective Subjective: pt more comfortable, states abd feels about the same but denies f/c, n/v/d. is pass flatus. still w/ abd distention terra drain still w/ output Objective - Vital Signs/Intake and Output Vital Signs (last 24 hours): Temp Pulse Resp BP Pulse Ox 98.7 F 107 H 20 113/62 95 01/28/17 07:27 01/28/17 07:27 01/28/17 07:27 01/28/17 07:27 01/28/17 07:27 Intake and Output: 01/28/17 01/28/17 06:59 18:59 Output Total 340 Balance -340 - Medications Medications: Current Medications Acetaminophen (Tylenol 325mg Tab) 650 mg PO Q4 PRN PRN Reason: Fever >100.4 F Last Admin: 01/24/17 21:25 Dose: 650 mg Docusate Sodium (Colace) 100 mg PO BID [facility] Last Admin: 01/27/17 21:18 Dose: 100 mg Famotidine (Pepcid) 20 mg IVP Q12 [facility] Last Admin: 01/27/17 21:20 Dose: 20 mg Piperacillin Sod/Tazobactam (Sod 3.375 gm/ Sodium Chloride) 100 mls @ 100 mls/ hr IVPB 0100,0700,1300,1900 [facility] Last Admin: 01/28/17 06:03 Dose: 100 mls/hr Lactated Ringer's (Lactated Ringer's) 1,000 mls @ 150 mls/hr IV .Q6H40M [facility] Last Admin: 01/28/17 03:59 Dose: Not Given Morphine Sulfate (Morphine) 4 mg IVP Q4 PRN PRN Reason: abd pain Last Admin: 01/28/17 00:07 Dose: 4 mg Ondansetron HCl (Zofran Inj) 4 mg IVP Q6 PRN PRN Reason: Nausea/Vomiting Last Admin: 01/27/17 15:55 Dose: 4 mg Oxycodone/Acetaminophen (Percocet 5/325 Mg Tab) 2 tab PO Q4 PRN PRN Reason: Pain, severe (8-10) Stop: 01/30/17 08:42 Simethicone (Mylicon Chew Tab) 80 mg PO TID PRN PRN Reason: Flatulence Last Admin: 01/27/17 16:00 Dose: 80 mg Zolpidem Tartrate (Ambien) 5 mg PO HS PRN PRN Reason: insomia Last Admin: 01/28/17 00:01 Dose: 5 mg - Labs Labs: 01/28/17 06:35 01/28/17 06:35 PT 12.3 Seconds (9.8-13.1) 01/24/17 19:00 INR 1.2 (0.9-1.2) 01/24/17 19:00 APTT 30.3 Seconds (25.6-37.1) 01/24/17 19:00 - Constitutional Appears: Well, Non-toxic, No Acute Distress - Head Exam Head Exam: ATRAUMATIC, NORMAL INSPECTION, NORMOCEPHALIC - Eye Exam Eye Exam: EOMI, Normal appearance, PERRL Pupil Exam: NORMAL ACCOMODATION, PERRL - ENT Exam ENT Exam: Mucous Membranes Moist, Normal Exam - Neck Exam Neck Exam: Full ROM, Normal Inspection. absent: Lymphadenopathy - Respiratory Exam Respiratory Exam: Clear to Ausculation Bilateral, NORMAL BREATHING PATTERN - Cardiovascular Exam Cardiovascular Exam: REGULAR RHYTHM, RRR, +S1, +S2. absent: Murmur - GI/Abdominal Exam GI & Abdominal Exam: Distended, Soft, Hypoactive Bowel Sounds. absent: Tenderness - Extremities Exam Extremities Exam: Full ROM, Normal Capillary Refill, Normal Inspection. absent : Joint Swelling, Pedal Edema - Back Exam Back Exam: NORMAL INSPECTION - Neurological Exam Neurological Exam: Alert, Awake, CN II-XII Intact, Normal Gait, Oriented x3 - Psychiatric Exam Psychiatric exam: Normal Affect, Normal Mood - Skin Skin Exam: Dry, Intact, Normal Color, Warm Assessment and Plan (1) DVT prophylaxis Assessment & Plan: scd and ae hose ambulation Status: Acute (2) Appendicitis Assessment & Plan: cont surgical f/u cont anbx cont drain managmenet, wound care stool softner pain control Status: Acute
[2017-01-28] MEDS: Simethicone 80 mg Chewtab PO PRN (08:27)
--- NOTE | 2017-01-28 10:19 | CP.PCM.PN ---
Subjective - Date & Time of Evaluation Date of Evaluation: 01/28/17 Time of Evaluation: 10:17 - Subjective Subjective: Surgery: Dr. Shafer Pt seen and examined. Resting comfortably in bed. Pain controlled. Tolerating liquid diet. No N/V. No BM. Pt would like to eat more. Pt is ambulating w. out difficulty. Objective - Vital Signs/Intake and Output Vital Signs (last 24 hours): Temp Pulse Resp BP Pulse Ox 98.7 F 107 H 20 113/62 95 01/28/17 07:27 01/28/17 07:27 01/28/17 07:27 01/28/17 07:27 01/28/17 07:27 Intake and Output: 01/28/17 01/28/17 06:59 18:59 Intake Total 100 Output Total 340 55 Balance -340 45 - Medications Medications: Current Medications Acetaminophen (Tylenol 325mg Tab) 650 mg PO Q4 PRN PRN Reason: Fever >100.4 F Last Admin: 01/24/17 21:25 Dose: 650 mg Docusate Sodium (Colace) 100 mg PO BID [facility] Last Admin: 01/28/17 08:25 Dose: 100 mg Famotidine (Pepcid) 20 mg IVP Q12 [facility] Last Admin: 01/28/17 08:25 Dose: 20 mg Piperacillin Sod/Tazobactam (Sod 3.375 gm/ Sodium Chloride) 100 mls @ 100 mls/ hr IVPB 0100,0700,1300,1900 [facility] Last Admin: 01/28/17 06:03 Dose: 100 mls/hr Lactated Ringer's (Lactated Ringer's) 1,000 mls @ 150 mls/hr IV .Q6H40M [facility] Last Admin: 01/28/17 03:59 Dose: Not Given Morphine Sulfate (Morphine) 4 mg IVP Q4 PRN PRN Reason: abd pain Last Admin: 01/28/17 00:07 Dose: 4 mg Ondansetron HCl (Zofran Inj) 4 mg IVP Q6 PRN PRN Reason: Nausea/Vomiting Last Admin: 01/27/17 15:55 Dose: 4 mg Oxycodone/Acetaminophen (Percocet 5/325 Mg Tab) 2 tab PO Q4 PRN PRN Reason: Pain, severe (8-10) Stop: 01/30/17 08:42 Simethicone (Mylicon Chew Tab) 80 mg PO TID PRN PRN Reason: Flatulence Last Admin: 01/28/17 08:27 Dose: 80 mg Zolpidem Tartrate (Ambien) 5 mg PO HS PRN PRN Reason: insomia Last Admin: 01/28/17 00:01 Dose: 5 mg - Labs Labs: 01/28/17 06:35 01/28/17 06:35 PT 12.3 Seconds (9.8-13.1) 01/24/17 19:00 INR 1.2 (0.9-1.2) 01/24/17 19:00 APTT 30.3 Seconds (25.6-37.1) 01/24/17 19:00 - Constitutional Appears: Non-toxic, No Acute Distress - Head Exam Head Exam: ATRAUMATIC, NORMOCEPHALIC - Eye Exam Eye Exam: EOMI - ENT Exam ENT Exam: Mucous Membranes Moist - Neck Exam Neck Exam: Full ROM - Respiratory Exam Respiratory Exam: NORMAL BREATHING PATTERN. absent: Accessory Muscle Use, Respiratory Distress - Cardiovascular Exam Cardiovascular Exam: Tachycardia - GI/Abdominal Exam GI & Abdominal Exam: Soft. absent: Distended, Firm, Guarding, Rigid, Tenderness , Rebound Additional comments: Lennox in place w. sanguinous output - Extremities Exam Extremities Exam: absent: Calf Tenderness, Pedal Edema - Neurological Exam Neurological Exam: Alert, Oriented x3 Assessment and Plan - Assessment and Plan (Free Text) Assessment: 41M w. appendicitis, s/p lap appy POD#4, w. post-op bleeding -Lennox: 340cc/12hr sanguinous -continue to monitor H/H and transfuse if needed -continue to hold anticoagulation -c/w IVF -c/w pain meds -c/w abx -will advance diet to regular -will d/w attending Zemaitis PGY3
[2017-01-29] MEDS: Piperacillin/Tazobact 3.375 GM in Sodium Chloride 0.9% 100 ML IVPB SCH ×4 (00:10→18:05)
--- NOTE | 2017-01-29 07:13 | CP.PCM.PN ---
Subjective - Date & Time of Evaluation Date of Evaluation: 01/29/17 Time of Evaluation: 07:13 - Subjective Subjective: pt doing well, less abd distention/bloating, pass flatus not stool. no f/c, n/v/ d still w/ some constipation. Objective - Vital Signs/Intake and Output Vital Signs (last 24 hours): Temp Pulse Resp BP Pulse Ox 98.7 F 107 H 20 131/78 95 01/29/17 01:17 01/29/17 01:17 01/29/17 01:17 01/29/17 01:17 01/29/17 01:17 Intake and Output: 01/29/17 01/29/17 06:59 18:59 Output Total 440 Balance -440 - Medications Medications: Current Medications Acetaminophen (Tylenol 325mg Tab) 650 mg PO Q4 PRN PRN Reason: Fever >100.4 F Last Admin: 01/24/17 21:25 Dose: 650 mg Acetaminophen (Tylenol 325mg Tab) 650 mg PO Q4 PRN PRN Reason: Pain, Mild (1-3) Last Admin: 01/29/17 04:59 Dose: 650 mg Docusate Sodium (Colace) 100 mg PO BID [facility] Last Admin: 01/28/17 18:29 Dose: 100 mg Famotidine (Pepcid) 20 mg IVP Q12 [facility] Last Admin: 01/28/17 21:53 Dose: 20 mg Piperacillin Sod/Tazobactam (Sod 3.375 gm/ Sodium Chloride) 100 mls @ 100 mls/ hr IVPB 0100,0700,1300,1900 [facility] Last Admin: 01/29/17 06:22 Dose: 100 mls/hr Lactated Ringer's (Lactated Ringer's) 1,000 mls @ 150 mls/hr IV .Q6H40M [facility] Last Admin: 01/28/17 17:26 Dose: Not Given Morphine Sulfate (Morphine) 4 mg IVP Q4 PRN PRN Reason: abd pain Last Admin: 01/28/17 18:30 Dose: 4 mg Ondansetron HCl (Zofran Inj) 4 mg IVP Q6 PRN PRN Reason: Nausea/Vomiting Last Admin: 01/28/17 18:36 Dose: 4 mg Oxycodone/Acetaminophen (Percocet 5/325 Mg Tab) 2 tab PO Q4 PRN PRN Reason: Pain, severe (8-10) Stop: 01/30/17 08:42 Simethicone (Mylicon Chew Tab) 80 mg PO TID PRN PRN Reason: Flatulence Last Admin: 01/28/17 08:27 Dose: 80 mg Zolpidem Tartrate (Ambien) 5 mg PO HS PRN PRN Reason: insomia Last Admin: 01/28/17 21:58 Dose: 5 mg - Labs Labs: 01/28/17 06:35 01/28/17 06:35 PT 12.3 Seconds (9.8-13.1) 01/24/17 19:00 INR 1.2 (0.9-1.2) 01/24/17 19:00 APTT 30.3 Seconds (25.6-37.1) 01/24/17 19:00 - Constitutional Appears: Well, Non-toxic, No Acute Distress - Head Exam Head Exam: ATRAUMATIC, NORMAL INSPECTION, NORMOCEPHALIC - Eye Exam Eye Exam: EOMI, Normal appearance, PERRL Pupil Exam: NORMAL ACCOMODATION, PERRL - ENT Exam ENT Exam: Mucous Membranes Moist, Normal Exam - Neck Exam Neck Exam: Full ROM, Normal Inspection. absent: Lymphadenopathy - Respiratory Exam Respiratory Exam: Clear to Ausculation Bilateral, NORMAL BREATHING PATTERN - Cardiovascular Exam Cardiovascular Exam: REGULAR RHYTHM, RRR, +S1, +S2. absent: Murmur - GI/Abdominal Exam GI & Abdominal Exam: Distended, Soft, Normal Bowel Sounds. absent: Tenderness - Extremities Exam Extremities Exam: Full ROM, Normal Capillary Refill, Normal Inspection. absent : Joint Swelling, Pedal Edema - Back Exam Back Exam: NORMAL INSPECTION - Neurological Exam Neurological Exam: Alert, Awake, CN II-XII Intact, Normal Gait, Oriented x3 - Psychiatric Exam Psychiatric exam: Normal Affect, Normal Mood - Skin Skin Exam: Dry, Intact, Normal Color, Warm Assessment and Plan (1) DVT prophylaxis Assessment & Plan: scd jaja ehose ambulation Status: Acute (2) Appendicitis Assessment & Plan: doing well, still w/ ileus, cona nbx, pain control surgery f/u cont drainuntil dc by surgery adv diet this am stool softner Status: Acute
[2017-01-29 07:32] LABS: ALKALINE PHOSPHATASE 43 U/L (38-126); ALT/SGPT 59 U/L (21-72); AST/SGOT 47 U/L (17-59); BILIRUBIN,TOTAL 0.7 mg/dl (0.2-1.3); BLOOD UREA NITROGEN 7 mg/dl (9-20); CARBON DIOXIDE 27 mmol/L (22-30); CHLORIDE 98 mmol/L (98-107); GFR AFRICAN-AMERICAN > 60; GLUCOSE,RANDOM 99 mg/dL (75-110); POTASSIUM 3.6 MMOL/L (3.6-5.0); SODIUM 133 mmol/l (132-148); TOTAL PROTEIN 5.6 G/DL (6.3-8.2)
[2017-01-29 07:33] LABS: BASO % 0.2 % (0.0-2.0); EOS % 0.6 % (0.0-4.0); HEMATOCRIT 24.5 % (35.0-51.0); LYMPH # 0.8 K/uL (1.0-4.3); LYMPH % 10.3 % (20.0-40.0); MEAN CELL VOLUME 81.7 fl (80.0-94.0); MEAN CORPUSCULAR HGB CONC 34.3 g/dL (33.0-37.0); MEAN PLATELET VOLUME 7.9 fl (7.2-11.7); MONO # 1.1 K/uL (0.0-0.8); MONO % 14.8 % (0.0-10.0); NEUT # 5.4 K/uL (1.8-7.0); NEUT % 74.1 % (50.0-75.0); RED CELL DISTRIBUTION WIDTH 13.1 % (11.5-14.5); WHITE BLOOD COUNT 7.3 K/uL (4.8-10.8)
--- NOTE | 2017-01-29 08:04 | CP.PCM.PN ---
Subjective - Date & Time of Evaluation Date of Evaluation: 01/29/17 Time of Evaluation: 08:01 - Subjective Subjective: Surgery: Dr. Arenas Pt seen and examined. Resting comfortably in bed. Pain controlled. Pt has been ambulating w. out difficulty. Tolerating FLD. No N/V. Passing flatus. No BM. Objective - Vital Signs/Intake and Output Vital Signs (last 24 hours): Temp Pulse Resp BP Pulse Ox 98.7 F 107 H 20 131/78 95 01/29/17 01:17 01/29/17 01:17 01/29/17 01:17 01/29/17 01:17 01/29/17 01:17 Intake and Output: 01/29/17 01/29/17 06:59 18:59 Output Total 440 Balance -440 - Medications Medications: Current Medications Acetaminophen (Tylenol 325mg Tab) 650 mg PO Q4 PRN PRN Reason: Fever >100.4 F Last Admin: 01/24/17 21:25 Dose: 650 mg Acetaminophen (Tylenol 325mg Tab) 650 mg PO Q4 PRN PRN Reason: Pain, Mild (1-3) Last Admin: 01/29/17 04:59 Dose: 650 mg Bisacodyl (Dulcolax) 10 mg OH ONCE ONE Stop: 01/29/17 08:02 Docusate Sodium (Colace) 100 mg PO BID [facility] Last Admin: 01/28/17 18:29 Dose: 100 mg Famotidine (Pepcid) 20 mg IVP Q12 [facility] Last Admin: 01/28/17 21:53 Dose: 20 mg Piperacillin Sod/Tazobactam (Sod 3.375 gm/ Sodium Chloride) 100 mls @ 100 mls/ hr IVPB 0100,0700,1300,1900 [facility] Last Admin: 01/29/17 06:22 Dose: 100 mls/hr Lactated Ringer's (Lactated Ringer's) 1,000 mls @ 150 mls/hr IV .Q6H40M [facility] Last Admin: 01/28/17 17:26 Dose: Not Given Morphine Sulfate (Morphine) 4 mg IVP Q4 PRN PRN Reason: abd pain Last Admin: 01/28/17 18:30 Dose: 4 mg Ondansetron HCl (Zofran Inj) 4 mg IVP Q6 PRN PRN Reason: Nausea/Vomiting Last Admin: 01/28/17 18:36 Dose: 4 mg Oxycodone/Acetaminophen (Percocet 5/325 Mg Tab) 2 tab PO Q4 PRN PRN Reason: Pain, severe (8-10) Stop: 01/30/17 08:42 Simethicone (Mylicon Chew Tab) 80 mg PO TID PRN PRN Reason: Flatulence Last Admin: 01/28/17 08:27 Dose: 80 mg Zolpidem Tartrate (Ambien) 5 mg PO HS PRN PRN Reason: insomia Last Admin: 01/28/17 21:58 Dose: 5 mg - Labs Labs: 01/29/17 06:50 01/29/17 06:50 PT 12.3 Seconds (9.8-13.1) 01/24/17 19:00 INR 1.2 (0.9-1.2) 01/24/17 19:00 APTT 30.3 Seconds (25.6-37.1) 01/24/17 19:00 - Constitutional Appears: Non-toxic, No Acute Distress - Head Exam Head Exam: ATRAUMATIC, NORMOCEPHALIC - Eye Exam Eye Exam: EOMI - ENT Exam ENT Exam: Mucous Membranes Moist - Neck Exam Neck Exam: Full ROM - Respiratory Exam Respiratory Exam: NORMAL BREATHING PATTERN. absent: Accessory Muscle Use, Respiratory Distress - GI/Abdominal Exam GI & Abdominal Exam: Soft, Tenderness (ifeoma-incisional ). absent: Distended, Firm, Guarding, Rigid, Rebound Additional comments: Lennox in place, dark sanguinous output - Extremities Exam Extremities Exam: absent: Calf Tenderness, Pedal Edema - Neurological Exam Neurological Exam: Alert, Awake, Oriented x3 Assessment and Plan - Assessment and Plan (Free Text) Assessment: 41M w. appendicitis, s/p lap appy POD#5, w. post-op bleeding -Lennox: 440cc/12hr dark sanguinous -continue to hold anticoagulation -c/w IVF -c/w pain meds -c/w abx -will advance diet to regular -dulcolax suppository -encourage ambulation and IS use -will d/w attending [facility] PGY3
[2017-01-29] MEDS: Lactated Ringer's 1,000 ML IV SCH ×2 (08:46→13:42)
[2017-01-30] MEDS: Piperacillin/Tazobact 3.375 GM in Sodium Chloride 0.9% 100 ML IVPB SCH ×2 (01:34→06:45)
[2017-01-30] MEDS: Lactated Ringer's 1,000 ML IV SCH ×2 (06:47→10:05)
--- NOTE | 2017-01-30 07:59 | CP.PCM.PN ---
Subjective - Date & Time of Evaluation Date of Evaluation: 01/30/17 Time of Evaluation: 07:56 - Subjective Subjective: Surgery: Dr. Arenas Pt seen and examined. Resting comfortably in bed. Pain controlled. Tolerating diet. No N/V. Pt had 4BM yesterday. Pt is eager to go home Objective - Vital Signs/Intake and Output Vital Signs (last 24 hours): Temp Pulse Resp BP Pulse Ox 98.7 F 112 H 20 109/70 98 01/30/17 00:40 01/30/17 00:40 01/30/17 00:40 01/30/17 00:40 01/30/17 00:40 Intake and Output: 01/30/17 01/30/17 06:59 18:59 Output Total 20 Balance -20 - Medications Medications: Current Medications Acetaminophen (Tylenol 325mg Tab) 650 mg PO Q4 PRN PRN Reason: Fever >100.4 F Last Admin: 01/24/17 21:25 Dose: 650 mg Acetaminophen (Tylenol 325mg Tab) 650 mg PO Q4 PRN PRN Reason: Pain, Mild (1-3) Last Admin: 01/30/17 01:45 Dose: 650 mg Docusate Sodium (Colace) 100 mg PO BID [facility] Last Admin: 01/29/17 18:05 Dose: 100 mg Famotidine (Pepcid) 20 mg IVP Q12 [facility] Last Admin: 01/29/17 21:19 Dose: 20 mg Piperacillin Sod/Tazobactam (Sod 3.375 gm/ Sodium Chloride) 100 mls @ 100 mls/ hr IVPB 0100,0700,1300,1900 [facility] Last Admin: 01/30/17 06:45 Dose: 100 mls/hr Lactated Ringer's (Lactated Ringer's) 1,000 mls @ 150 mls/hr IV .Q6H40M [facility] Last Admin: 01/30/17 06:47 Dose: Not Given Morphine Sulfate (Morphine) 4 mg IVP Q4 PRN PRN Reason: abd pain Last Admin: 01/28/17 18:30 Dose: 4 mg Ondansetron HCl (Zofran Inj) 4 mg IVP Q6 PRN PRN Reason: Nausea/Vomiting Last Admin: 01/28/17 18:36 Dose: 4 mg Oxycodone/Acetaminophen (Percocet 5/325 Mg Tab) 2 tab PO Q4 PRN PRN Reason: Pain, severe (8-10) Stop: 01/30/17 08:42 Simethicone (Mylicon Chew Tab) 80 mg PO TID PRN PRN Reason: Flatulence Last Admin: 01/28/17 08:27 Dose: 80 mg Zolpidem Tartrate (Ambien) 5 mg PO HS PRN PRN Reason: insomia Last Admin: 01/29/17 22:55 Dose: 5 mg - Labs Labs: 01/29/17 06:50 01/29/17 06:50 PT 12.3 Seconds (9.8-13.1) 01/24/17 19:00 INR 1.2 (0.9-1.2) 01/24/17 19:00 APTT 30.3 Seconds (25.6-37.1) 01/24/17 19:00 - Constitutional Appears: Non-toxic, No Acute Distress - Head Exam Head Exam: ATRAUMATIC, NORMOCEPHALIC - Eye Exam Eye Exam: EOMI. absent: Scleral icterus - ENT Exam ENT Exam: Mucous Membranes Moist - Neck Exam Neck Exam: Full ROM - Respiratory Exam Respiratory Exam: NORMAL BREATHING PATTERN. absent: Accessory Muscle Use, Respiratory Distress - GI/Abdominal Exam GI & Abdominal Exam: Soft. absent: Distended, Firm, Guarding, Rigid, Tenderness , Rebound Additional comments: suprapubic william - Neurological Exam Neurological Exam: Alert, Awake, Oriented x3 - Psychiatric Exam Psychiatric exam: Normal Affect, Normal Mood - Skin Skin Exam: Dry, Normal Color, Warm Assessment and Plan - Assessment and Plan (Free Text) Assessment: 41M w. perforated appendicitis, s/p lap appy, POD#6, w. post-op bleeding -william 121cc/24 hr serosang -will d/c drain -pt is clear for d/c from surgical standpoint -to follow up in office 1-2 weeks -PO abx outpt as instructed -d/w attending Zemaitis PGY3
--- NOTE | 2017-01-30 08:05 | CP.PCM.PN ---
Subjective - Date & Time of Evaluation Date of Evaluation: 01/30/17 Time of Evaluation: 08:03 - Subjective Subjective: pt denies compalitns at present. less abd distention/bloating. no f/c, n/v/d. no pain. samuel po solids. Objective - Vital Signs/Intake and Output Vital Signs (last 24 hours): Temp Pulse Resp BP Pulse Ox 98.7 F 112 H 20 109/70 98 01/30/17 00:40 01/30/17 00:40 01/30/17 00:40 01/30/17 00:40 01/30/17 00:40 Intake and Output: 01/30/17 01/30/17 06:59 18:59 Output Total 20 Balance -20 - Medications Medications: Current Medications Acetaminophen (Tylenol 325mg Tab) 650 mg PO Q4 PRN PRN Reason: Fever >100.4 F Last Admin: 01/24/17 21:25 Dose: 650 mg Acetaminophen (Tylenol 325mg Tab) 650 mg PO Q4 PRN PRN Reason: Pain, Mild (1-3) Last Admin: 01/30/17 01:45 Dose: 650 mg Docusate Sodium (Colace) 100 mg PO BID [facility] Last Admin: 01/29/17 18:05 Dose: 100 mg Famotidine (Pepcid) 20 mg IVP Q12 [facility] Last Admin: 01/29/17 21:19 Dose: 20 mg Piperacillin Sod/Tazobactam (Sod 3.375 gm/ Sodium Chloride) 100 mls @ 100 mls/ hr IVPB 0100,0700,1300,1900 [facility] [place] Last Admin: 01/30/17 06:45 Dose: 100 mls/hr Lactated Ringer's (Lactated Ringer's) 1,000 mls @ 150 mls/hr IV .Q6H40M [facility] [place] Last Admin: 01/30/17 06:47 Dose: Not Given Morphine Sulfate (Morphine) 4 mg IVP Q4 PRN PRN Reason: abd pain Last Admin: 01/28/17 18:30 Dose: 4 mg Ondansetron HCl (Zofran Inj) 4 mg IVP Q6 PRN PRN Reason: Nausea/Vomiting Last Admin: 01/28/17 18:36 Dose: 4 mg Oxycodone/Acetaminophen (Percocet 5/325 Mg Tab) 2 tab PO Q4 PRN PRN Reason: Pain, severe (8-10) Stop: 01/30/17 08:42 Simethicone (Mylicon Chew Tab) 80 mg PO TID PRN PRN Reason: Flatulence Last Admin: 01/28/17 08:27 Dose: 80 mg Zolpidem Tartrate (Ambien) 5 mg PO HS PRN PRN Reason: insomia Last Admin: 01/29/17 22:55 Dose: 5 mg - Labs Labs: 01/29/17 06:50 01/29/17 06:50 PT 12.3 Seconds (9.8-13.1) 01/24/17 19:00 INR 1.2 (0.9-1.2) 01/24/17 19:00 APTT 30.3 Seconds (25.6-37.1) 01/24/17 19:00 - Constitutional Appears: Well, Non-toxic, No Acute Distress - Head Exam Head Exam: ATRAUMATIC, NORMAL INSPECTION, NORMOCEPHALIC - Eye Exam Eye Exam: EOMI, Normal appearance, PERRL Pupil Exam: NORMAL ACCOMODATION, PERRL - ENT Exam ENT Exam: Mucous Membranes Moist, Normal Exam - Neck Exam Neck Exam: Full ROM, Normal Inspection. absent: Lymphadenopathy - Respiratory Exam Respiratory Exam: Clear to Ausculation Bilateral, NORMAL BREATHING PATTERN - Cardiovascular Exam Cardiovascular Exam: REGULAR RHYTHM, +S1, +S2. absent: Murmur - GI/Abdominal Exam GI & Abdominal Exam: Distended, Soft, Normal Bowel Sounds. absent: Tenderness Additional comments: improved distention, less drainage in william drain - Extremities Exam Extremities Exam: Full ROM, Normal Capillary Refill, Normal Inspection. absent : Joint Swelling, Pedal Edema - Back Exam Back Exam: NORMAL INSPECTION - Neurological Exam Neurological Exam: Alert, Awake, CN II-XII Intact, Normal Gait, Oriented x3 - Psychiatric Exam Psychiatric exam: Normal Affect, Normal Mood - Skin Skin Exam: Dry, Intact, Normal Color, Warm Assessment and Plan (1) DVT prophylaxis Assessment & Plan: scd and ae hose ambulation Status: Acute (2) Appendicitis Assessment & Plan: ?? dc of drain and dc of pt today samuel po zosyn surgery f/u Status: Acute
[2017-01-30 08:35] VITALS: BP 123/82; PULSE 101; RESP 18; TEMP 98.4; O2SAT 95
--- NOTE | 2017-01-30 10:48 | CP.PCM.DIS ---
Provider - Provider Date of Admission: 01/24/17 18:36 Attending physician: Leti Alvarado MD Time Spent in preparation of Discharge (in minutes): 15 Diagnosis - Discharge Diagnosis (1) DVT prophylaxis Status: Acute (2) Appendicitis Status: Acute Hospital Course - Lab Results Lab Results: Micro Results 01/24/17 18:45 Blood Blood Culture - Final NO GROWTH AFTER 5 DAYS 01/24/17 18:45 Blood Gram Stain - Final TEST NOT PERFORMED 01/24/17 19:00 Blood Blood Culture - Final NO GROWTH AFTER 5 DAYS 01/24/17 19:00 Blood Gram Stain - Final TEST NOT PERFORMED Most Recent Lab Values WBC 7.3 K/uL (4.8-10.8) 01/29/17 06:50 RBC 2.99 Mil/uL (4.40-5.90) L 01/29/17 06:50 Hgb 8.4 g/dL (12.0-18.0) L 01/29/17 06:50 Hct 24.5 % (35.0-51.0) L 01/29/17 06:50 MCV 81.7 fl (80.0-94.0) 01/29/17 06:50 MCH 28.0 pg (27.0-31.0) 01/29/17 06:50 MCHC 34.3 g/dL (33.0-37.0) 01/29/17 06:50 RDW 13.1 % (11.5-14.5) 01/29/17 06:50 Plt Count 216 K/uL (130-400) 01/29/17 06:50 MPV 7.9 fl (7.2-11.7) 01/29/17 06:50 Neut % (Auto) 74.1 % (50.0-75.0) 01/29/17 06:50 Lymph % (Auto) 10.3 % (20.0-40.0) L 01/29/17 06:50 [place]ney % (Auto) 14.8 % (0.0-10.0) H 01/29/17 06:50 Eos % (Auto) 0.6 % (0.0-4.0) 01/29/17 06:50 Baso % (Auto) 0.2 % (0.0-2.0) 01/29/17 06:50 Neut # 5.4 K/uL (1.8-7.0) 01/29/17 06:50 Lymph # 0.8 K/uL (1.0-4.3) L 01/29/17 06:50 Harney # 1.1 K/uL (0.0-0.8) H 01/29/17 06:50 Eos # 0.0 K/uL (0.0-0.7) 01/29/17 06:50 Baso # 0.0 K/uL (0.0-0.2) 01/29/17 06:50 Neutrophils % (Manual) 80 % (42-75) H 01/24/17 16:00 Band Neutrophils % 3 % (0-2) H 01/24/17 16:00 Lymphocytes % (Manual) 10 % (20-50) L 01/24/17 16:00 Monocytes % (Manual) 7 % (0-10) 01/24/17 16:00 Platelet Estimate Normal (NORMAL) 01/24/17 16:00 Hypochromasia (manual) Slight 01/24/17 16:00 Microcytosis (manual) Slight 01/24/17 16:00 PT 12.3 Seconds (9.8-13.1) 01/24/17 19:00 INR 1.2 (0.9-1.2) 01/24/17 19:00 APTT 30.3 Seconds (25.6-37.1) 01/24/17 19:00 Sodium 133 mmol/l (132-148) 01/29/17 06:50 Potassium 3.6 MMOL/L (3.6-5.0) 01/29/17 06:50 Chloride 98 mmol/L (98-107) 01/29/17 06:50 Carbon Dioxide 27 mmol/L (22-30) 01/29/17 06:50 Anion Gap 12 (10-20) 01/29/17 06:50 BUN 7 mg/dl (9-20) L 01/29/17 06:50 Creatinine 0.8 mg/dL (0.8-1.5) 01/29/17 06:50 Est GFR ( Amer) > 60 01/29/17 06:50 Est GFR (Non-Af Amer) > 60 01/29/17 06:50 Random Glucose 99 mg/dL (75-110) 01/29/17 06:50 Calcium 8.0 mg/dL (8.4-10.2) L 01/29/17 06:50 Iron < 10 ug/dL (49-181) L 01/27/17 06:00 TIBC 195 ug/dL (250-450) L 01/27/17 06:00 % Saturation % (20-55) 01/27/17 06:00 Transferrin 108.25 mg/dL (206-381) L 01/26/17 06:30 Ferritin 168.0 ng/mL 01/26/17 06:30 Total Bilirubin 0.7 mg/dl (0.2-1.3) 01/29/17 06:50 AST 47 U/L (17-59) 01/29/17 06:50 ALT 59 U/L (21-72) 01/29/17 06:50 Alkaline Phosphatase 43 U/L (38-126) 01/29/17 06:50 Total Protein 5.6 G/DL (6.3-8.2) L 01/29/17 06:50 Albumin 2.8 g/dL (3.5-5.0) L 01/29/17 06:50 Globulin 2.8 gm/dL (2.2-3.9) 01/29/17 06:50 Albumin/Globulin Ratio 1.0 (1.0-2.1) 01/29/17 06:50 Lipase 22 U/L (23-300) L 01/24/17 16:00 Urine Color Jemima (YELLOW) 01/24/17 15:37 Urine Clarity Slighty-cloudy (Clear) 01/24/17 15:37 Urine pH 5.0 (5.0-8.0) 01/24/17 15:37 Ur Specific [place] 1.025 (1.003-1.030) 01/24/17 15:37 Urine Protein Negative mg/dL (NEGATIVE) 01/24/17 15:37 Urine Glucose (UA) Neg mg/dL (Normal) 01/24/17 15:37 Urine Ketones 80 mg/dL (NEGATIVE) 01/24/17 15:37 Urine Blood Negative (NEGATIVE) 01/24/17 15:37 Urine Nitrate Negative (NEGATIVE) 01/24/17 15:37 Urine Bilirubin Negative (NEGATIVE) 01/24/17 15:37 Urine Urobilinogen 0.2-1.0 mg/dL (0.2-1.0) 01/24/17 15:37 Ur Leukocyte Esterase Trace Lino/uL (Negative) 01/24/17 15:37 Urine RBC (Auto) 3 /hpf (0-3) 01/24/17 15:37 Urine Microscopic WBC 6 /hpf (0-5) H 01/24/17 15:37 Ur Squamous Epith Cells < 1 /hpf (0-5) 01/24/17 15:37 Urine Bacteria Rare (<OCC) 01/24/17 15:37 Blood Type O POSITIVE 01/25/17 19:44 Blood Type Confirm O POSITIVE 01/25/17 19:53 Antibody Screen Negative 01/25/17 19:44 BBK History Checked No verified bt 01/25/17 19:44 Discharge Exam - Head Exam Head Exam: ATRAUMATIC, NORMOCEPHALIC Discharge Plan - Discharge Medications Prescriptions: Amoxicillin/Clavulanate [Augmentin 875 MG-125 MG] 1 tab PO BID #10 tab - Follow Up Plan Condition: STABLE Disposition: HOME/ ROUTINE Additional Instructions: final dx- perf appendicits cleared by surgery for dc after drain removed. f/u rmg nad surgery rte dprn, meds per med rec
== END 2017-01-30 12:20 | disposition home or self-care (01) | DRG 339 ==
LOC: H.ER 14:48 → H.EROBSV 15:34 → OBSVTOIN 18:36 → H.ERHOLD 18:38 → H.MEDSURG1 22:05
PROVIDERS: ADMIT Family Medicine; ATTEND Family Medicine
PROC: 3E0234Z Introduction of Serum, Toxoid and Vaccine into Muscle, Percutaneous Approach (ICD-10-PCS; 2017-01-24)
PROC: 0DTJ4ZZ Resection of Appendix, Percutaneous Endoscopic Approach (ICD-10-PCS; principal; 2017-01-24 19:30)
DX: K35.3 Acute appendicitis with localized peritonitis (principal); D62 Acute posthemorrhagic anemia; K56.7 Ileus, unspecified; K91.840 Postprocedural hemorrhage of a digestive system organ or structure following a digestive system procedure; K59.00 Constipation, unspecified; Z23 Encounter for immunization; Y83.6 Removal of other organ (partial) (total) as the cause of abnormal reaction of the patient, or of later complication, without mention of misadventure at the time of the procedure

== ENCOUNTER 2017-02-24 04:02 | Emergency (ER) | payer BC ==
[2017-02-24 04:58] VITALS: BMI 34.9
[2017-02-24 05:03] VITALS: RESP 18; TEMP 99.3; O2SAT 97
--- NOTE | 2017-02-24 05:06 | ED PDOC ---
HPI: Abdomen <Ally Teran - Last Filed: 02/24/17 06:09> <Neal Jarrell - Last Filed: 02/24/17 06:57> Time Seen by Provider: 02/24/17 04:41 Additional Complaint(s): CC: RUQ Pain 41M p/w acute episode of sharp RUQ pain that radiated to his infrascapular/ shoulder that has since resolved. He denies any associated fevers, chills, N/V , diarrhea, SOB, chest pain/palpitations, dysuria. He reports he had pizza for dinner, he is passing flatus and last BM was yesterday. Otherwise, he is 1 month s/p appendectomy for ruptured appendix. PMH: None PSH: Appendectomy 01/24/17 Allergies: NKDA (Ally Teran) Supervising Attending Note <Ally Teran - Last Filed: 02/24/17 06:09> - Attestation: I have personally seen and examined this patient.: Yes I have fully participated in the care of the patient.: Yes I have reviewed all pertinent clinical information: Yes <Neal Jarrell - Last Filed: 02/24/17 06:57> - Notes: Notes:: Pt. s/p appy 1 mo ago, now w/ RUQ pain, R sided dullness to percussion and decreased BS, effusion on cxr, will get CT and labs to further clarify. Will sign out to day team. (Neal Jarrell) Past Medical History - Family History Family History: States: Unknown Family Hx <Ally Teran - Last Filed: 02/24/17 06:09> <Neal Jarrell - Last Filed: 02/24/17 06:57> Vital Signs: Last Vital Signs Temp 99.3 F 02/24/17 05:00 Pulse 109 H 02/24/17 05:00 Resp 18 02/24/17 05:00 BP 141/67 02/24/17 05:00 Pulse Ox 97 02/24/17 05:00 - Home Medications Home Medications: Ambulatory Orders Medication Instructions Recorded Naproxen 375 mg PO Q8 PRN #21 tab 04/21/15 Amoxicillin/Clavulanate [Augmentin 1 tab PO BID #10 tab 01/30/17 875 MG-125 MG] - Allergies Allergies/Adverse Reactions: Allergies Allergy/AdvReac Type Severity Reaction Status Date / Time No Known Allergies Allergy Verified 01/24/17 14:55 Review of Systems ROS Statement: Except As Marked, All Systems Reviewed And Found Negative Gastrointestinal: Positive for: Abdominal Pain (RUQ, has resolved) <Ally Teran - Last Filed: 02/24/17 06:09> Physical Exam - Reviewed Vital Signs Reviewed: Yes - Physical Exam Appears: Positive for: Well, Non-toxic, No Acute Distress Head Exam: Positive for: ATRAUMATIC Skin: Positive for: Normal Color, Warm, Dry Eye Exam: Positive for: EOMI, PERRL Neck: Positive for: Normal, Supple Cardiovascular/Chest: Positive for: Regular Rate, Rhythm Respiratory: Positive for: Normal Breath Sounds. Negative for: Rales, Wheezing Gastrointestinal/Abdominal: Positive for: Bowel Sounds, Soft. Negative for: Tenderness, Rebound Back: Negative for: R CVA Tenderness Extremity: Positive for: Normal ROM Neurologic/Psych: Positive for: Alert <Ally Teran - Last Filed: 02/24/17 06:09> - Laboratory Results Result Diagrams: 02/24/17 06:27 02/24/17 06:27 <Neal Jarrell - Last Filed: 02/24/17 06:57> Medical Decision Making <Ally Teran - Last Filed: 02/24/17 06:09> <Neal Jarrell - Last Filed: 02/24/17 06:57> Medical Decision MakinM symptoms and history c/w gas pain vs. transient biliary colic vs. less likely renal colic. - Urine Dip: WNL - Obstructive Series: Right pleural effusion Re-Eval VBG: CBC: BMP: Non-con CT chest: (Ally Teran) Disposition <Ally Teran - Last Filed: 02/24/17 06:09> - Patient ED Disposition Is Patient to be Admitted: Transfer of Care - Disposition Disposition: Transfer of Care Disposition Time: 07:00 Patient Signed Over To: Katelin Rodriguez Handoff Comments: pending ct and blood work <Neal Jarrell - Last Filed: 02/24/17 06:57> - Clinical Impression Clinical Impression: Pleural effusion - Disposition Condition: STABLE
--- NOTE | 2017-02-24 06:03 | RAD ---
EXAM: XR Abdomen Complete With XR Chest CLINICAL HISTORY: 41 years old, male; Pain; Abdominal pain; Localized; Right lower quadrant (rlq); Prior surgery; Surgery date: <1 month; Surgery type: Appendectomy; Patient HX: Pain at surgical site; Additional info: R sided abd pain, recent appendectomy TECHNIQUE: Frontal view of the chest, frontal view of the abdomen/pelvis and upright view of the abdomen. COMPARISON: No relevant prior studies available. FINDINGS: Lungs: Increased density RIGHT lung base. Pleural space: Moderate RIGHT pleural effusion. No pneumothorax. Heart: No cardiomegaly. Mediastinum: Unremarkable. Intraperitoneal space: No definite pneumoperitoneum. Gastrointestinal tract: Air and stool within nondilated colon. Air within nondilated small bowel. Organs: Rounded calcification within LEFT hemipelvis, likely phlebolith. Bones/joints: No acute fracture. IMPRESSION: 1. RIGHT pleural effusion. Underlying atelectasis and/or pneumonia not excluded.
[2017-02-24 06:32] LABS: BASO # 0.1 K/uL (0.0-0.2); BASO % 0.9 % (0.0-2.0); EOS # 0.3 K/uL (0.0-0.7); EOS % 3.5 % (0.0-4.0); LYMPH # 1.9 K/uL (1.0-4.3); LYMPH % 22.3 % (20.0-40.0); MEAN CORPUSCULAR HEMOGLOBIN 24.7 pg (27.0-31.0); MEAN CORPUSCULAR HGB CONC 31.6 g/dL (33.0-37.0); MEAN PLATELET VOLUME 7.2 fl (7.2-11.7); MONO % 12.4 % (0.0-10.0); NEUT # 5.1 K/uL (1.8-7.0); NEUT % 60.9 % (50.0-75.0); RED CELL DISTRIBUTION WIDTH 15.2 % (11.5-14.5); WHITE BLOOD COUNT 8.4 K/uL (4.8-10.8)
[2017-02-24 06:39] LABS: BLOOD UREA NITROGEN 8 mg/dl (9-20); CALCIUM 8.8 mg/dL (8.4-10.2); CARBON DIOXIDE 25 mmol/L (22-30); CHLORIDE 104 mmol/L (98-107); GFR AFRICAN-AMERICAN > 60; GLUCOSE,RANDOM 107 mg/dL (75-110); SODIUM 139 mmol/l (132-148)
[2017-02-24 06:43] LABS: VENOUS BLOOD GAS BASE EXCESS 4.5 mmol/L (0.0-2.0); VENOUS BLOOD GAS PCO2 46 mmHg (40-60); VENOUS BLOOD PH 7.42 (7.32-7.43)
--- NOTE | 2017-02-24 07:25 | ED PDOC ---
- Laboratory Results Result Diagrams: 02/24/17 06:27 02/24/17 06:27 - ECG O2 Sat by Pulse Oximetry: 97 Medical Decision Making Medical Decision Makin:00 Patient signed over to me by Dr. Neal Jarrell MD pending CT Scan. Scribe Attestation: Documented by Glo Aggarwal, acting as a scribe for Katelin Rodriguez MD. Provider Scribe Attestation: All medical record entries made by the Scribe were at my direction and personally dictated by me. I have reviewed the chart and agree that the record accurately reflects my personal performance of the history, physical exam, medical decision making, and the department course for this patient. I have also personally directed, reviewed, and agree with the discharge instructions and disposition. 9.30a - CT results reviewed with patient and Kaleb Rose. Patient had perforated appendicitis 3-4 weeks ago. He presented to the ER with acute onset of RUQ and right back pain that resolved by the time he came to the ER. He continues to be asymptomatic. There is no report of fever, chills, nausea, vomiting. Plan: given lack of acute illness or symptoms at present, will discharge patient. He can be seen tomorrow in the office and have subspecialty consultation within 24 hours. Patient is agreeable. Instructed to return to the hospital if he becomes acutely symptomatic. Disposition Doctor Will See Patient In The: Office Counseled Patient/Family Regarding: Diagnosis, Need For Followup - Clinical Impression Clinical Impression: Pleural effusion, Anemia, Subcapsular hepatic hematoma - POA Present On Arrival: None - Disposition Referrals: [facility] [Provider Group] - 02/25/17 Disposition: Routine/Home Disposition Time: 09:30 Condition: STABLE Instructions: Pleural Effusion (ED), Anemia (ED) Forms: [employer] ([place])
[2017-02-24] MEDS ORDERED: Sodium Chloride 0.9% 50 ML IV ONE (07:35)
[2017-02-24] MEDS ORDERED: Iohexol 300 100 ML IJ ONE (07:35)
--- NOTE | 2017-02-24 09:17 | CT ---
PROCEDURE: CT Chest with contrast HISTORY: R pleural effusion, RUQ pain COMPARISON: None. TECHNIQUE: Contiguous axial images were obtained through the chest with intravenous contrast enhancement. Sagittal and coronal reconstructions were performed. IV contrast: 90 cc of Omnipaque 300 Radiation dose (DLP): 618 mGy-cm. This CT exam was performed using one or more of the following dose reduction techniques: Automated exposure control, adjustment of the mA and/or kV according to patient size, and/or use of iterative reconstruction technique. FINDINGS: LUNGS: See below. MEDIASTINUM: Unremarkable thoracic aorta. No aneurysm or dissection. Normal sized heart. Main pulmonary artery unremarkable. No vascular congestion. No lymphadenopathy. PLEURA: Large right pleural effusion with extensive compressive atelectasis at the right lung base with superimposed infiltrate along the anterior aspect of the right upper lobe and right middle lobe. BONES: No fracture. No destructive lesion. UPPER ABDOMEN: 10 centimeter right subcapsular hepatic hematoma with perihepatic fluid and mass effect upon the lateral margin of the right hepatic lobe. OTHER FINDINGS: None. IMPRESSION: Large right pleural effusion with extensive compressive atelectasis at the right lung base with superimposed infiltrate along the anterior aspect of the right upper lobe and right middle lobe. 10 centimeter right subcapsular hepatic hematoma with perihepatic fluid and mass effect upon the lateral margin of the right hepatic lobe.
[2017-02-24 10:35] VITALS: BP 136/70; PULSE 89
== END 2017-02-24 10:21 | disposition home or self-care (01) ==
LOC: H.ER 04:02
DX: J90 Pleural effusion, not elsewhere classified (principal); D64.9 Anemia, unspecified; S40.011A Contusion of right shoulder, initial encounter; X58.XXXA Exposure to other specified factors, initial encounter
CPT/HCPCS: 71260; 74022; 80048; 82803; 85025; 99283; Q9967